=== PATIENT | male | born 1985 | race Caucasian/White ===

== ENCOUNTER 2020-02-11 10:01 | Emergency (ER) | payer SELFPAY ==
[2020-02-11 10:07] VITALS: BP 138/95; PULSE 86; RESP 16; TEMP 36.9; O2SAT 99; BMI 29.5
[2020-02-11 10:16] VITALS: PULSE 84; RESP 16; O2SAT 100
[2020-02-11 10:32] LABS: Basophils # 0.1 10^3/uL (0.0-0.1); Basophils % 0.9 %; Eosinophils # 0.2 10^3/uL (0.0-0.8); Hematocrit 51.3 % (42.0-52.0); Hemoglobin 17.7 g/dL (11.7-16.6); Lymphocytes # 2.2 10^3/uL (0.8-4.8); Lymphocytes % 19.9 %; Mean Corpuscular HGB Conc 34.5 g/dL (30.0-36.0); Mean Corpuscular Hemoglobin 31.5 pg (28.0-34.0); Mean Corpuscular Volume 91.3 fL (80-94); Mean Platelet Volume 9.4 fL (7.4-10.4); Monocytes # 0.6 10^3/uL (0.2-0.9); Monocytes % 5.6 %; Neutrophils # 7.91 10^3/uL (1.8-7.7); Neutrophils % 71.2 %; Nucleated Red Blood Cells % 0 %; Platelet Count 316 10^3/cmm (130-400); Red Blood Count 5.62 10^6/uL (4.1-5.3); Red Cell Distribution Width 11.5 % (12.1-15.1); White Blood Count 11.1 10^3/uL (4.0-10.0)
[2020-02-11 10:35] LABS: Add Urine Microscopic? NO
[2020-02-11 10:48] LABS: Bilirubin Urine 1+ (NEGATIVE); Blood Urine Neg (Negative); Glucose Urine UA Norm (Normal); Ketones Urine 1+ (Negative); Leukocyte Esterase Urine Negative (Negative); Nitrate Urine Negative (Negative); Protein Urine Neg (Negative); Urine Appearance Clear (CLEAR); Urine Color Yellow (Yellow); Urobilinogen Urine Norm (Negative)
[2020-02-11 10:55] LABS: Alanine Aminotransferase 16 U/L (0-41); Alkaline Phosphatase 99 IU/L (40-130); Anion Gap 14.9 (5-19); Aspartate Amino Transferase 15 U/L (0-40); Blood Urea Nitrogen 10 mg/dL (6-20); Calcium 9.5 mg/dL (8.5-10.5); Carbon Dioxide 25 mmol/L (22-29); Chloride 102 mmol/L (98-107); Glomerular Filtration Rate 97.2 mL/min (90-130); Glucose 106 mg/dL (65-115); Osmolality Calculated 282 mOsm/kg (285-295); Potassium 3.9 mmol/L (3.5-5.1); Sodium 138 mmol/L (136-145); Total Bilirubin 0.6 mg/dL (0.15-1.2); Valproic Acid Level 2.8 ug/mL (50-100)
--- NOTE | 2020-02-11 10:55 | W.ED.PSYCH ---
HPI - Psych General: Chief Complaint: Psychiatric Symptoms Stated Complaint: SI Time Seen by Provider: 02/11/20 10:06 History of Present Illness: HPI Narrative: 34-year-old male presents with suicidal ideation. He got upset because his mother was angry with him for leaving trash in her vehicle anybody does not have a vehicle of his own. He posted on social media that he was going to kill himself with a handgun. He denies suicidal ideation at this time. Due to the social media post alcohol discharge department brought him in for evaluation. Stairstep he did show me the social media post. Patient does admit that it was his post and that he posted that he was going to kill himself. MD complaint: suicidal ideation Onset (ago): day(s) Duration: intermittent Review of Systems Const: Denies: fever(s), chills, body aches, change in appetite, fatigue or malaise ENMT: Denies: throat pain, ear or mastoid pain, nasal discharge or nasal congestion Card: Denies: chest pain, edema, dyspnea on exertion or orthopnea Resp: Denies: dyspnea, productive cough or non-productive cough GI: Denies: abdominal pain, nausea, vomiting, hematemesis, coffee ground emesis, diarrhea, constipation, bloating, hematochezia or melena : Denies: flank pain, dysuria, urinary frequency or urinary urgency Skin/Breast: Denies: rash or pruritus [facility] ED PFSH: Medical History (Updated 02/11/20 @ 16:50 by Michele Tsai DO) Hypertension Physical Exam Const: COMMON NORMALS: no acute distress GENERAL APPEARANCE: cooperative and comfortable ORIENTATION/CONSCIOUSNESS: Yes awake, Yes oriented to person, Yes oriented to place and Yes oriented to time HENMT: COMMON NORMALS: normocephalic and atraumatic HEAD & SCALP: normocephalic and atraumatic Eye: COMMON NORMALS: Equal, round and reactive pupils present, EOMs intact bilaterally, conjunctivae normal and no scleral icterus CONJUNCTIVA: Yes conjunctivae normal PUPIL: Yes Equal, round and reactive pupils present Neck/C-Spine: COMMON NORMALS: full ROM, no lymphadenopathy, supple and no JVD Lymph: LYMPHATIC: no lymphadenopathy noted and no lymphedema noted Resp: COMMON NORMALS: normal respiratory effort, No retractions, No use of accessory muscles and clear to auscultation bilaterally AUSCULTATION: clear to auscultation bilaterally Cardio: COMMON NORMALS: no JVD, regular rate, regular rhythm and No murmurs present (Cardio) RATE: regular rate RHYTHM: regular rhythm GI: COMMON NORMALS: Soft to palpation and No hepatosplenomegaly present AUSCULTATION: Yes normoactive bowel sounds PALPATION: Yes Soft to palpation, No Tenderness to palpation present (GI), No Guarding due to palpation present (GI) and Yes No hepatosplenomegaly present Extremity: COMMON NORMALS: normal to inspection, capillary refill normal, no clubbing, cyanosis or edema, no calf tenderness and no pedal edema Neuro: SENSORIUM/ORIENTATION: Yes oriented to person, Yes oriented to place and Yes oriented to time Skin: COMMON NORMALS: no rashes or lesions noted GENERAL SKIN EXAM: no rashes or lesions noted MDM - Psych MDM Narrative: Medical decision making narrative: Dust with Dr. garcia. Patient readily admits he made the social media post however and talk to him his biggest concern is about the days he will lose from work if he is admitted Dr. garcia came down and seen the patient he does not feel the patient at this time represents an immediate harm to himself or anyone else when I talked to the patient he denied any suicidal ideation although he admitted to the social media post Dr. garcia felt the patient could be safely be discharged home please see his note will discharge patient home encouraged him to get follow-up at [facility] I did make a referral through case case management. Lab Data: Labs: Lab Results 02/11/20 02/11/20 02/11/20 Range/Units 10:25 10:25 10:26 WBC 11.1 H (4.0-10.0) 10^3/ uL RBC 5.62 H (4.1-5.3) 10^6/u L Hgb 17.7 H (11.7-16.6) g/dL Hct 51.3 (42.0-52.0) % MCV 91.3 (80-94) fL MCH 31.5 (28.0-34.0) pg MCHC 34.5 (30.0-36.0) g/dL RDW 11.5 L (12.1-15.1) % Plt Count 316 (130-400) 10^3/c mm MPV 9.4 (7.4-10.4) fL Neut % (Auto) 71.2 % Lymph % (Auto) 19.9 % [place] % (Auto) 5.6 % Eos % (Auto) 2.0 % Baso % (Auto) 0.9 % Neut # (Auto) 7.91 H (1.8-7.7) 10^3/u L Lymph # (Auto) 2.2 (0.8-4.8) 10^3/u L [place] # (Auto) 0.6 (0.2-0.9) 10^3/u L Eos # (Auto) 0.2 (0.0-0.8) 10^3/u L Baso # (Auto) 0.1 (0.0-0.1) 10^3/u L Nucleated RBC % (a uto) 0 % Nucleated RBCs # 0.0 /100WBC Sodium (136-145) mmol/L Potassium (3.5-5.1) mmol/L Chloride (98-107) mmol/L Carbon Dioxide (22-29) mmol/L Anion Gap (5-19) BUN (6-20) mg/dL Creatinine (0.7-1.2) mg/dL GFR Calculation (90-130) mL/min Glucose (65-115) mg/dL Calculated Osmolal ity (285-295) mOsm/k g Calcium (8.5-10.5) mg/dL Total Bilirubin (0.15-1.2) mg/dL AST (0-40) U/L ALT (0-41) U/L Alkaline Phosphata se (40-130) IU/L Total Protein (6.6-8.7) g/dL Albumin (3.5-5.2) g/dL Globulin (1.3-4.6) g/dL Urine Color Yellow (Yellow) Urine Appearance Clear (CLEAR) Urine pH 5.0 (5-7) Ur Specific Gravit y 1.020 (1.005-1.030) Urine Protein Neg (Negative) Urine Glucose (UA) Norm (Normal) Urine Ketones 1+ H (Negative) Urine Blood Neg (Negative) Urine Nitrate Negative (Negative) Urine Bilirubin 1+ H (NEGATIVE) Urine Urobilinogen Norm (Negative) mg/dL Ur Leukocyte Ghada ase Negative (Negative) Salicylates (3-10) mg/dL Urine Opiates Scre en Negative (Negative) ng/mL Acetaminophen (10-30) ug/mL Ur Barbiturates Sc reen Negative (Negative) ng/mL Valproic Acid (50-100) ug/mL Ur Phencyclidine S crn Negative (Negative) ng/mL Ur Amphetamines Sc reen Negative (Negative) ng/mL U Benzodiazepines Scrn Negative (Negative) ng/mL Urine Cocaine Scre en Negative (Negative) ng/mL U Marijuana (THC) Screen Positive H (Negative) ng/mL Ethyl Alcohol (0-10) mg/dL 02/11/20 02/11/20 Range/Units 10:26 10:26 WBC (4.0-10.0) 10^3/ uL RBC (4.1-5.3) 10^6/u L Hgb (11.7-16.6) g/dL Hct (42.0-52.0) % MCV (80-94) fL MCH (28.0-34.0) pg MCHC (30.0-36.0) g/dL RDW (12.1-15.1) % Plt Count (130-400) 10^3/c mm MPV (7.4-10.4) fL Neut % (Auto) % Lymph % (Auto) % [place] % (Auto) % Eos % (Auto) % Baso % (Auto) % Neut # (Auto) (1.8-7.7) 10^3/u L Lymph # (Auto) (0.8-4.8) 10^3/u L [place] # (Auto) (0.2-0.9) 10^3/u L Eos # (Auto) (0.0-0.8) 10^3/u L Baso # (Auto) (0.0-0.1) 10^3/u L Nucleated RBC % (a uto) % Nucleated RBCs # /100WBC Sodium 138 (136-145) mmol/L Potassium 3.9 (3.5-5.1) mmol/L Chloride 102 (98-107) mmol/L Carbon Dioxide 25 (22-29) mmol/L Anion Gap 14.9 (5-19) BUN 10 (6-20) mg/dL Creatinine 0.9 (0.7-1.2) mg/dL GFR Calculation 97.2 (90-130) mL/min Glucose 106 (65-115) mg/dL Calculated Osmolal ity 282 L (285-295) mOsm/k g Calcium 9.5 (8.5-10.5) mg/dL Total Bilirubin 0.6 (0.15-1.2) mg/dL AST 15 (0-40) U/L ALT 16 (0-41) U/L Alkaline Phosphata se 99 (40-130) IU/L Total Protein 8.0 (6.6-8.7) g/dL Albumin 5.0 (3.5-5.2) g/dL Globulin 3.0 (1.3-4.6) g/dL Urine Color (Yellow) Urine Appearance (CLEAR) Urine pH (5-7) Ur Specific Gravit y (1.005-1.030) Urine Protein (Negative) Urine Glucose (UA) (Normal) Urine Ketones (Negative) Urine Blood (Negative) Urine Nitrate (Negative) Urine Bilirubin (NEGATIVE) Urine Urobilinogen (Negative) mg/dL Ur Leukocyte Ghada ase (Negative) Salicylates < 0.3 L (3-10) mg/dL Urine Opiates Scre en (Negative) ng/mL Acetaminophen < 5.0 L (10-30) ug/mL Ur Barbiturates Sc reen (Negative) ng/mL Valproic Acid 2.8 L (50-100) ug/mL Ur Phencyclidine S crn (Negative) ng/mL Ur Amphetamines Sc reen (Negative) ng/mL U Benzodiazepines Scrn (Negative) ng/mL Urine Cocaine Scre en (Negative) ng/mL U Marijuana (THC) Screen (Negative) ng/mL Ethyl Alcohol < 10 (0-10) mg/dL Discharge Plan Discharge Patient Disposition: Home Clinical Impression: Depression Condition: Stable Prescriptions: No Action No Known Home Medications RF: 0 Referrals: [facility], [Staff Physician] - Discharge Diet: Usual diet Discharge Activity: Resume usual activity Activity Restrictions/Additional Instructions: Follow-up appointment with [facility] Discharge Date/Time: 02/11/20 13:00 Coding Level of Care Code ED Aboriginal Education Worker Coordinator for Familia Rivera
[2020-02-11 10:56] LABS: Amphetamines Screen Urine Negative (Negative); Barbiturates Screen Urine Negative (Negative); Benzodiazepines Screen Urine Negative (Negative); Cocaine Screen Urine Negative (Negative); Opiate Screen Urine Negative (Negative); PCP Screen Urine Negative (Negative); THC Screen Urine Positive (Negative)
[2020-02-11 11:12] LABS: Acetaminophen < 5.0 ug/mL (10-30); Alcohol Level < 10 mg/dL (0-10)
[2020-02-11 13:20] LABS: Salicylate < 0.3 mg/dL (3-10)
== END 2020-02-11 13:00 | disposition home or self-care (01) ==
PROVIDERS: Emergency Provider Family Medicine; PCP Nurse Practitioner Family
DX: F32.9 Major depressive disorder, single episode, unspecified (principal); I10 Essential (primary) hypertension
CPT/HCPCS: 12345; 36415; 80053; 80164; 80306; 80307; 81003; 85025; 99284

== ENCOUNTER 2020-02-25 22:41 | Inpatient (IN) | payer SELFPAY ==
[2020-02-25 22:49] VITALS: BP 139/93; PULSE 75; RESP 18; TEMP 36.4; O2SAT 99; BMI 29.5
--- NOTE | 2020-02-25 23:19 | W.ED.PSYCH ---
HPI - Psych General: Chief Complaint: Psychiatric Symptoms Stated Complaint: ho smith Time Seen by Provider: 02/25/20 22:42 Source: patient Mode of arrival: ambulatory Limitations: no limitations History of Present Illness: HPI Narrative: 34-year-old male who states to me that he is extremely depressed and suicidal and states he feels like the world is coming in on him. Patient here is been very quiet has a very flat affect. History is very difficult to get to him as he is not very cooperative will not give me any details. Patient states he supposed to be on meds but is not taking any at this time. Associated symptoms: Reports suicidal ideation Review of Systems Const: Denies: fever(s), chills, body aches or change in appetite Eyes: Denies: blurry vision or eye discomfort ENMT: Denies: throat pain or dental pain Card: Denies: chest pain Resp: Denies: dyspnea GI: Denies: abdominal pain, nausea, vomiting or diarrhea : Denies: dysuria Musc: Denies: neck pain or back pain Skin/Breast: Denies: rash Neuro: Denies: headache(s) Psych: Reports: suicidal ideation Federico/Lymph: Denies: easy bruising All/Imm: Denies: urticaria PFSH ED PFSH: Medical History (Updated 02/19/20 @ 00:00 by ) Hypertension Physical Exam Const: COMMON NORMALS: no acute distress, patient oriented x3 and healthy appearing HENMT: COMMON NORMALS: normocephalic and atraumatic HEAD & SCALP: normocephalic and atraumatic Eye: COMMON NORMALS: Equal, round and reactive pupils present and EOMs intact bilaterally PUPIL: Yes Equal, round and reactive pupils present Neck/C-Spine: COMMON NORMALS: full ROM and supple Chest: COMMONS NORMALS: normal inspection of the chest and normal palpation of entire chest wall Resp: COMMON NORMALS: normal respiratory effort, No retractions, No use of accessory muscles and clear to auscultation bilaterally AUSCULTATION: clear to auscultation bilaterally Cardio: COMMON NORMALS: regular rate, regular rhythm and No murmurs present (Cardio) RATE: regular rate RHYTHM: regular rhythm GI: COMMON NORMALS: Normal to inspection, nondistended, normoactive bowel sounds present, Soft to palpation, non-tender and no masses PALPATION: Yes Soft to palpation Extremity: COMMON NORMALS: normal to inspection and full ROM Neuro: COMMON NORMALS: patient oriented x3, moves all extremities and no focal motor deficits Psych: APPEARANCE: Yes disheveled ATTITUDE: Yes Withdrawn affect present, Yes evasive and Yes Guarded attititude/behavior present SPEECH: Yes minimal MOOD & AFFECT: Yes depressed mood THOUGHT CONTENT: Yes Suicidality present Skin: COMMON NORMALS: no rashes or lesions noted and no wounds GENERAL SKIN EXAM: no rashes or lesions noted MDM - Psych MDM Narrative: Medical decision making narrative: Patient presents here with suicidal ideation. Patient placed under 96 and is medically cleared. I spoke to Dr. Saldaña and will admit to the neuro psych unit. Lab Data: Labs: Lab Results 02/25/20 02/25/20 02/25/20 Range/Units 23:20 23:45 23:45 WBC 9.4 (4.0-10.0) 10^3/ uL RBC 5.26 (4.1-5.3) 10^6/u L Hgb 16.0 (11.7-16.6) g/dL Hct 47.4 (42.0-52.0) % MCV 90.1 (80-94) fL MCH 30.4 (28.0-34.0) pg MCHC 33.8 (30.0-36.0) g/dL RDW 11.9 L (12.1-15.1) % Plt Count 337 (130-400) 10^3/c mm MPV 9.4 (7.4-10.4) fL Neut % (Auto) 47.8 % Lymph % (Auto) 41.4 % [place] % (Auto) 6.0 % Eos % (Auto) 3.5 % Baso % (Auto) 0.9 % Neut # (Auto) 4.47 (1.8-7.7) 10^3/u L Lymph # (Auto) 3.9 (0.8-4.8) 10^3/u L [place] # (Auto) 0.6 (0.2-0.9) 10^3/u L Eos # (Auto) 0.3 (0.0-0.8) 10^3/u L Baso # (Auto) 0.1 (0.0-0.1) 10^3/u L Nucleated RBC % (a uto) 0 % Nucleated RBCs # 0.0 /100WBC Sodium 140 (136-145) mmol/L Potassium 3.7 (3.5-5.1) mmol/L Chloride 105 (98-107) mmol/L Carbon Dioxide 23 (22-29) mmol/L Anion Gap 15.7 (5-19) BUN 10 (6-20) mg/dL Creatinine 0.7 (0.7-1.2) mg/dL GFR Calculation 129.9 (90-130) mL/min Glucose 102 (65-115) mg/dL Calculated Osmolal ity 286 (285-295) mOsm/k g Calcium 8.7 (8.5-10.5) mg/dL Total Bilirubin 0.4 (0.15-1.2) mg/dL AST 16 (0-40) U/L ALT 18 (0-41) U/L Alkaline Phosphata se 82 (40-130) IU/L Total Protein 8.1 (6.6-8.7) g/dL Albumin 4.7 (3.5-5.2) g/dL Globulin 3.4 (1.3-4.6) g/dL Salicylates < 0.3 L (3-10) mg/dL Urine Opiates Scre en Negative (Negative) ng/mL Acetaminophen < 5.0 L (10-30) ug/mL Ur Barbiturates Sc reen Negative (Negative) ng/mL Ur Phencyclidine S crn Negative (Negative) ng/mL Ur Amphetamines Sc reen Negative (Negative) ng/mL U Benzodiazepines Scrn Negative (Negative) ng/mL Urine Cocaine Scre en Negative (Negative) ng/mL U Marijuana (THC) Screen Negative (Negative) ng/mL Ethyl Alcohol 136 H (0-10) mg/dL Discharge Plan Discharge Prescriptions: No Action No Known Home Medications RF: 0 Coding Level of Care Code ED Inside Barrel Lathe Operator for Chg Fwd Exam Comprehensive
[2020-02-25] MEDS: LORazepam 2 mg Tablet PO (23:30)
[2020-02-25 23:52] LABS: Amphetamines Screen Urine Negative (Negative); Barbiturates Screen Urine Negative (Negative); Benzodiazepines Screen Urine Negative (Negative); Cocaine Screen Urine Negative (Negative); Opiate Screen Urine Negative (Negative); PCP Screen Urine Negative (Negative); THC Screen Urine Negative (Negative)
[2020-02-26 00:03] LABS: Basophils # 0.1 10^3/uL (0.0-0.1); Basophils % 0.9 %; Eosinophils # 0.3 10^3/uL (0.0-0.8); Eosinophils % 3.5 %; Hematocrit 47.4 % (42.0-52.0); Lymphocytes # 3.9 10^3/uL (0.8-4.8); Lymphocytes % 41.4 %; Mean Corpuscular HGB Conc 33.8 g/dL (30.0-36.0); Mean Corpuscular Hemoglobin 30.4 pg (28.0-34.0); Mean Corpuscular Volume 90.1 fL (80-94); Mean Platelet Volume 9.4 fL (7.4-10.4); Monocytes # 0.6 10^3/uL (0.2-0.9); Neutrophils # 4.47 10^3/uL (1.8-7.7); Neutrophils % 47.8 %; Nucleated Red Blood Cells % 0 %; Platelet Count 337 10^3/cmm (130-400); Red Blood Count 5.26 10^6/uL (4.1-5.3); Red Cell Distribution Width 11.9 % (12.1-15.1); White Blood Count 9.4 10^3/uL (4.0-10.0)
[2020-02-26 00:14] LABS: Alanine Aminotransferase 18 U/L (0-41); Albumin Level 4.7 g/dL (3.5-5.2); Alcohol Level 136 mg/dL (0-10); Alkaline Phosphatase 82 IU/L (40-130); Anion Gap 15.7 (5-19); Aspartate Amino Transferase 16 U/L (0-40); Blood Urea Nitrogen 10 mg/dL (6-20); Calcium 8.7 mg/dL (8.5-10.5); Carbon Dioxide 23 mmol/L (22-29); Chloride 105 mmol/L (98-107); Globulin 3.4 g/dL (1.3-4.6); Glomerular Filtration Rate 129.9 mL/min (90-130); Glucose 102 mg/dL (65-115); Osmolality Calculated 286 mOsm/kg (285-295); Potassium 3.7 mmol/L (3.5-5.1); Sodium 140 mmol/L (136-145); Total Bilirubin 0.4 mg/dL (0.15-1.2); Total Protein 8.1 g/dL (6.6-8.7)
[2020-02-26 00:15] LABS: Acetaminophen < 5.0 ug/mL (10-30); Salicylate < 0.3 mg/dL (3-10)
[2020-02-26 01:20] VITALS: BP 146/87; PULSE 87; RESP 14; O2SAT 99
[2020-02-26 01:37] VITALS: BP 149/87; PULSE 76; RESP 15; TEMP 36.6; O2SAT 98
[2020-02-26 03:14] VITALS: BP 118/68; PULSE 94; RESP 15; TEMP 36.8; O2SAT 98
[2020-02-26 06:00] VITALS: BP 118/68; PULSE 94; RESP 15; TEMP 36.8; O2SAT 98
[2020-02-26] MEDS: thiamine 100 mg Tablet PO (08:43)
[2020-02-26] MEDS: folic acid 1 mg Tablet PO (08:43)
[2020-02-26] MEDS: multivitamin therapeutic Tablet 1 TAB PO (08:43)
[2020-02-26 14:00] VITALS: BP 115/70; PULSE 97; RESP 20; TEMP 37; O2SAT 96
--- NOTE | 2020-02-26 14:43 | P.HP_ITS ---
Providers/Chief Complaint Admitting Physician: Aristeo Saldaña MD Chief Complaint: si, mhe HPI NPU History of Present Illness Servando Merino is a 34 year old male who presented to the emergency room reporting that he was extremely depressed and suicidal, feels like the world is coming in on him. He reportedly had a flat affect, and he was a poor historian reportedly. He reported he was supposed to be on medication but was not taking any. He endorsed suicidal ideation. He was noted to have a blood alcohol level of 136. He was admitted to the neuropsychiatric unit for definitive treatment of those issues. He presented to the neuropsychiatric unit as a fairly poor historian, very guarded, and struggled to even turn and face this feature writer. He reports that he had been off his medication for an unknown period of time. Servando had reportedly gone to the emergency room earlier in the month with an episode where his mother was angry with him for leaving trash in her vehicle after which he posted on social media that he was going to kill himself, though he denied suicidal ideation when he was in the emergency room. He was brought in for evaluation where he acknowledged that he was feeling angry at the time and did post that but denied any issues like that. He denied that he would ever follow through on that. The case was discussed with Dr. Owens and he was evaluated and encouraged to follow-up with [facility] where he had a case finisher. There was a call after that by Servando? mother, very angry that he was not admitted but he had no problems or concerns reportedly after that. He is unable to articulate to me how often he drinks, how long he has been off the medication, when was the last time he was followed with regularity. His mother has had multiple calls with concerns about his drinking and things of that nature. He really had no conversation for that either. We reviewed his history given his limited ability to provide a clear history. His last inpatient hospitalization was in June of 2015 and we reviewed that document, which he reports was a fairly accurate depiction of his history. We also reviewed an excerpt of that note which is included below. We also reviewed one of his earliest hospitalizations which was at [facility] which was in March of 2012, and we discussed the fact that at that time he had just been placed on a 96-hour hold after he had been drinking and got pulled over by the [facility] police. He had been picked up for DWI and he was really freaking out because he was afraid that he was going to lose his job. He had some self-injurious behavior at the time that he was later embarrassed. He presented with an elevated blood alcohol level and was denying any signi ficant alcohol problem at that time when he was working at [employer]. He identifies that he has some intellectual limitations, as he was in special education classes at school. There has been a discussion that he has held diagnoses of major depressive disorder, cannabis use disorder, and there have been questions of whether or not he meets the criteria for autism spectrum disorder which they refer to as Asperger?s. Currently he endorses a desire to initiate medication. We discussed briefly, the medication that he had been on. He was not sure and wanted me to check. We agreed to look into the possibility of starting Prozac 20 mg po qam and Buspar 15 mg po bid after discussing the risks, benefits, and alternatives. He agreed to consider starting these in the morning. There is depression and anxiety. Per his last [facility] eval: History of Present Illness Date of Service: Jun 18, 2015 Chief Complaint: Suicidal ideations HPI: The patient was admitted from the emergency room due to suicidal ideations. According to reports, he was transported to the emergency room by police after a fight with his mother. He looks very depressed, withdrawn with a flat affect. He states he stopped taking his medications for at least a month and a half because they made him feel sluggish. States he is not able to work on his current medications. He is not hearing voices and seeing things. He has been treated on the unit in the past and follows up at [facility] for outpatient care and carries previous diagnosis of major depressive disorder, cannabis dependence and borderline intellectual functioning. Review of Psychiatric Systems: Negative, except as above. Allergies: Coded Allergies: NO KNOWN DRUG ALLERGIES (Verified Allergy, Unknown, 11/21/13) Active Meds: Current Hospital Medications: Medications (Trade) Dose Ordered Sig/Gabriel Route PRN Reason Start Time Stop Time Status Last Admin Dose Admin Lorazepam (Ativan Tab) 0.5 mg Q4H PRN PO FOR MILD ANXIETY 06/17/15 11:15 Lorazepam (Ativan Tab) 1 mg Q4H PRN PO FOR MODERATE ANXIETY 06/17/15 11:15 Lorazepam (Ativan Tab) 2 mg Q4H PRN PO FOR SEVERE ANXIETY 06/17/15 11:15 Lorazepam (Ativan Inj) 2 mg Q4H PRN IM For Severe Aggression 06/17/15 11:15 Haloperidol Lactate (Haldol Inj) 5 mg Q4H PRN IM Severe Aggression 06/17/15 11:15 Diphenhydramine HCl (Benadryl Inj) 50 mg ONCE PRN IV Severe Extrapyramidal Symptoms 06/17/15 11:15 Benztropine Mesylate (Cogentin Tab) 1 mg BID PRN PO Mild Extrapyramidal symptoms 06/17/15 11:15 Benztropine Mesylate (Cogentin Inj) 1 mg ONCE PRN IM Severe Extrapyramidal Symptom 06/17/15 11:15 Acetaminophen (Tylenol Tab) 650 mg Q4H PRN PO FOR MILD PAIN 06/17/15 11:15 Trazodone HCl (Trazodone) 50 mg HS PRN PO FOR SLEEP 06/17/15 11:15 Nicotine (Nicoderm Patch) 21 mg DAILY PRN TD FOR WITHDRAWAL 06/17/15 11:15 Nicotine Polacrilex (Nicotine Gum) 2 mg Q2H PRN PO Withdrawal 06/17/15 11:15 Haloperidol (Haldol Tab) 5 mg Q4H PRN PO For agitation 06/17/15 11:15 Lorazepam (Ativan Tab) 2 mg Q4H PRN PO FOR AGITATION 06/17/15 11:15 Aripiprazole (Abilify Tab) 5 mg HS PO 06/18/15 22:00 Citalopram Hydrobromide (Celexa) 20 mg HS PO 06/18/15 22:00 Lisinopril (Prinivil) 20 mg DAILY PO 06/18/15 11:00 06/18/15 13:03 Home Meds: He was previously on Abilify, Celexa, trazodone and Topamax as well as lisinopril for blood pressure management. Past Medical History Past Medical/Social History: PAST PSYCHIATRIC HISTORY: As mentioned above. FAMILY PSYCHIATRIC HISTORY: father :alcoholic. There is no family history of suicide. SUBSTANCE USE HISTORY: History of marijuana use. PAST MEDICAL HISTORY: None reported. SOCIAL HISTORY: He was born in [place], [place], but raised in [place], [place]. His parents when he was very young and he moved around a lot as a child. He is single and has no children. He is a high school graduate and he currently works. He was in special education classes in school. He has never been in the . Physical Exam Vital Signs: Vital Signs: Date Time Temp Pulse Resp B/P Pulse Ox O2 Delivery O2 Flow Rate FiO2 06/18/15 06:22 98.4 90 18 131/88 96 06/17/15 13:31 Room Air Physical Exam: HEENT: Normal to inspection. NECK: Supple. CARDIOVASCULAR: S1 and S2 normal. CHEST: Clear. ABDOMEN: Soft. Nontender. NEUROLOGIC: No obvious deficits. EXTREMITIES: Normal to inspection. Review of systems: A fourteen-point Review of Systems is done, but is negative except as above. MENTAL STATUS EXAMINATION: In addition to what is mentioned above, The patient is alert and oriented. Speech is normal in rate, volume and tone. Patient describes mood as depressed. Affect is depressed. Insight and judgment are fair/poor. On cognitive examination, the patient appears cognitively limited: No, as evidenced by use of language and language comprehension. Data Result Diagram: 06/17/154906/17/1549 document embedded image Impression AXIS I: Major depressive disorder, severe without psychotic features; cannabis use disorder. AXIS II: Borderline intellectual functioning AXIS III: None AXIS IV: Work related problems. AXIS V: Global Assessment of Function: 25. Meds NPU Home Medications Medication Instructions Recorded Confirmed Last Taken Type No Known Home Medications 02/11/20 02/11/20 Unknown History Allergies Allergy/AdvReac Type Severity Reaction Status Date / Time No Known Allergies Allergy Verified 02/11/20 10:16 [facility] NPU PFSH: Medical History (Updated 03/01/20 @ 08:06 by Aristeo Saldaña MD) Hypertension Mental Status Exam MSE Comments: This is an obese, white male, with adequate dress, grooming, and limited eye contact. No abnormal movements except for mild to moderate psychomotor retardation. Semi-cooperative with exam in mild distress. Speech was decreased rate and volume and limited. Mood described as depressed and anxious; affect congruent. Thought process, organized. Thought content: patient did endorse suicidal ideation but denied homicidal ideation. There were no delusions reported or noted, patient denied any auditory or visual hallucinations. Attention, concentration, and memory appear intact but were not formally tested. He is alert and oriented times three. Insight and judgment are limited. Impulse control is limited, and intellectual ability is impaired. Vitals/I&O/Wt Last Vital Signs Temp 99.2 F 02/26/20 20:51 Pulse 80 02/26/20 20:51 Resp 18 02/26/20 20:51 BP 102/63 02/26/20 20:51 Pulse Ox 98 02/26/20 20:51 Weight last 48 hrs Weight 90.718 kg Data NPU : 02/25/20 23:45 02/25/20 23:45 A&P Assessment and plan (1) Depression: Status: Acute (2) Anxiety: Status: Acute (3) Alcohol use disorder: Status: Acute (4) Intellectual disability: Status: Acute (5) Autism: Status: Acute Additional A&P Information This is a 34 year old, white male, with alcohol use disorder, intellectual disability, depression and anxiety, and a question of autistic spectrum disorder, who presents reporting a desire to initiate medication but reports that there are some that have not been that good and he wanted to check first before he started it. Continue current medication except will start Buspar 15 mg bid and Prozac 20 mg po qam in the morning. Encourage individual, group, and milieu therapy. Continue q-15 minute checks for safety. Recommend sober living treatment at the highest level of care to which the patient is willing to commit. Involuntary Hold Information 96 Hour Hold: 96 Hour Involuntary Admission: Yes 96 Hour Hold Ending Date: 03/02/20 96 Hour Hold Ending Time: 23:30 Attestations NPU Medical Necessity Statement*: Inpatient hospitalization is medically necessary and the clinically appropriate intervention at this time. We will monitor medications and make changes as indicated. Patient will be in the hospital for over two midnights. Likely length of stay four to six days. Coding Level of Care Code Acute Manager Of Internal Audit for Johng Fwd Diagnoses Depression F32.9 Anxiety F41.9 Alcohol use disorder Intellectual disability F79 Autism F84.0
[2020-02-26] MEDS: fluoxetine 20 mg Capsule PO (18:22)
[2020-02-26 20:51] VITALS: BP 102/63; PULSE 80; RESP 18; TEMP 37.3; O2SAT 98
[2020-02-27 06:00] VITALS: BP 109/70; PULSE 83; RESP 18; TEMP 36.9; O2SAT 98
[2020-02-27] MEDS: fluoxetine 20 mg Capsule PO (08:22)
[2020-02-27] MEDS: folic acid 1 mg Tablet PO (08:22)
[2020-02-27] MEDS: multivitamin therapeutic Tablet 1 TAB PO (08:22)
[2020-02-27] MEDS: thiamine 100 mg Tablet PO (08:22)
--- NOTE | 2020-02-27 13:49 | PM.NPN ---
Subjective NPU Subjective: Interval history: Servando presents today still fairly tightlipped and not very communicative, but very much isolative on the unit and staying in his room. He agreed that starting the Prozac and Buspar would be fine. We once again reviewed the risks, benefits, and alternatives to the medications, and he understood and agreed to proceed as is documented in this note. He reports that he wants to get better and wants to leave soon as he can. We reviewed with him that he is on a 96-hour hold and we would monitor him for improvement and discharge when it is safe to do so and that we had a sign that the medication was being effective, which he understood. Mental Status Exam MSE Comments: This is an obese, white male, with adequate dress, grooming, and limited eye contact. No abnormal movements except for mild to moderate psychomotor retardation. Semi-cooperative with exam in mild distress. Speech was decreased rate and volume and limited. Mood described as depressed and anxious; affect congruent. Thought process, organized. Thought content: patient did endorse suicidal ideation but denied homicidal ideation. There were no delusions reported or noted, patient denied any auditory or visual hallucinations. Attention, concentration, and memory appear intact but were not formally tested. He is alert and oriented times three. Insight and judgment are limited. Impulse control is limited, and intellectual ability is impaired. Vitals/I&O/Wt Last Vital Signs Temp 98.0 F 02/27/20 22:00 Pulse 101 H 02/27/20 22:00 Resp 18 02/27/20 22:00 BP 147/99 02/27/20 22:00 Pulse Ox 95 02/27/20 22:00 Data NPU : 02/25/20 23:45 02/25/20 23:45 A&P Additional A&P Information (1) Depression: (2) Anxiety: (3) Alcohol use disorder: (4) Intellectual disability: (5) Autism: Additional A&P Information This is a 34 year old, white male, with alcohol use disorder, intellectual disability, depression and anxiety, and a question of autistic spectrum disorder, who presents reporting a desire to initiate medication but reports that there are some that have not been that good and he wanted to check first before he started it. Continue current medication. Encourage individual, group, and milieu therapy. Continue q-15 minute checks for safety. Recommend sober living treatment at the highest level of care to which the patient is willing to commit. Involuntary Hold Information 96 Hour Hold: 96 Hour Involuntary Admission: Yes 96 Hour Hold Ending Date: 03/02/20 96 Hour Hold Ending Time: 23:30 Attestations NPU Medical Necessity Statement*: Inpatient hospitalization is medically necessary and the clinically appropriate intervention at this time. We will monitor medications and make changes as indicated. Likely length of stay 3-5 days. Coding Level of Care Code Acute Engine Lathe Set Up Operator for Familia Rivera
[2020-02-27 14:00] VITALS: BP 107/67; PULSE 83; RESP 18; TEMP 37.1; O2SAT 95
[2020-02-27 22:00] VITALS: BP 147/99; PULSE 101; RESP 18; TEMP 36.7; O2SAT 95
[2020-02-27] MEDS: trazodone 50 mg Tablet PO (22:13)
[2020-02-28 06:00] VITALS: BP 109/72; PULSE 83; RESP 16; TEMP 36.5; O2SAT 92
[2020-02-28] MEDS: thiamine 100 mg Tablet PO (09:29)
[2020-02-28] MEDS: fluoxetine 20 mg Capsule PO (09:29)
[2020-02-28] MEDS: multivitamin therapeutic Tablet 1 TAB PO (09:29)
[2020-02-28] MEDS: folic acid 1 mg Tablet PO (09:29)
--- NOTE | 2020-02-28 11:42 | P.PN_ITS ---
Subjective NPU Subjective: Interval history: Servando presents today slightly more engaged, spending less time in his room and in bed, and more interactive. He is still fairly nonverbal, or at least there is not a lot of spontaneous conversation, but he is answering questions and seeming a little less apprehensive about talking to this director underwriter sales. His roommate was likely going to be discharged, and so he inquired about the timeframe for his discharge. We once again reviewed that his 96-hour hold was up on the , but that we would discharge him as soon as we had a sense that the medication was moving forward and we had a good plan for treatment. He reports that he is eating okay and sleeping better. Mental Status Exam MSE Comments: This is an obese, white male, with adequate dress, grooming, and approved eye contact. No abnormal movements except for mild psychomotor retardation. More cooperative with exam in no acute distress. Speech was more normal rate and volume and more spontaneous speech. Mood described as a little better ; affect congruent. Thought process, organized. Thought content: patient denies suicidal or homicidal ideation. There were no delusions reported or noted, patient denied any auditory or visual hallucinations. Attention, concentration, and memory appear intact but were not formally tested. He is alert and oriented times three. Insight and judgment are limited, but improving. Impulse control is limited, and intellectual ability is impaired. Vitals/I&O/Wt Last Vital Signs Temp 97.7 F 02/28/20 06:00 Pulse 83 02/28/20 06:00 Resp 16 02/28/20 06:00 BP 109/72 02/28/20 06:00 Pulse Ox 92 02/28/20 06:00 Data NPU : 02/25/20 23:45 02/25/20 23:45 A&P Additional A&P Information (1) Depression: (2) Anxiety: (3) Alcohol use disorder: (4) Intellectual disability: (5) Autism: This is a 34 year old, white male, with alcohol use disorder, intellectual disability, depression and anxiety, and a question of autistic spectrum disorder, who presents reporting a desire to initiate medication but reports that there are some that have not been that good and he wanted to check first before he started it. Continue current medication. Encourage individual, group, and milieu therapy. Continue q-15 minute checks for safety. Recommend sober living treatment at the highest level of care to which the patient is willing to commit. Involuntary Hold Information 96 Hour Hold: 96 Hour Involuntary Admission: Yes 96 Hour Hold Ending Date: 03/02/20 96 Hour Hold Ending Time: 23:30 Attestations NPU Medical Necessity Statement*: Inpatient hospitalization is medically necessary and the clinically appropriate intervention at this time. We will monitor medications and make changes as indicated. Likely length of stay 2-4 days. Coding Level of Care Code Acute Heating Repair Technician for Familia Rivera
[2020-02-28 13:43] VITALS: BP 116/68; PULSE 85; RESP 18; TEMP 36.4; O2SAT 96
[2020-02-28] MEDS: trazodone 50 mg Tablet PO (21:46)
--- NOTE | 2020-02-28 21:47 | PC.NURSE ---
PRN TRAZODONE PT REQUESTING SLEEP AID. ADMINISTERED TRAZODONE 50MG PO. WILL MONITOR FOR MEDICATION EFFECTIVENESS.
[2020-02-28 22:00] VITALS: BP 147/94; PULSE 101; RESP 18; TEMP 36.4; O2SAT 96
[2020-02-29 06:00] VITALS: BP 106/70; PULSE 82; RESP 16; TEMP 36.5; O2SAT 98
[2020-02-29] MEDS: fluoxetine 20 mg Capsule PO (09:49)
[2020-02-29] MEDS: multivitamin therapeutic Tablet 1 TAB PO (09:49)
[2020-02-29] MEDS: thiamine 100 mg Tablet PO (09:49)
[2020-02-29] MEDS: folic acid 1 mg Tablet PO (09:49)
--- NOTE | 2020-02-29 10:43 | P.PN_ITS ---
Subjective NPU Subjective: Interval history: Servando presented today endorsing significant improvement on the medication. He clearly is feeling better, up and around, not isolating in his room, actually able to have eye contact during the conversation, reporting that he is acknowledging the impact of alcohol in his life and that he is going to have to figure out how to stop. He stated that is a general plan. We discussed the importance of having a treatment plan to discontinue the alcohol given that in reviewing his records, his interactions with [facility] have all had alcohol as a part of it or as a significant part of it. He acknowledged that his three hospitalizations all have had alcohol as a piece. He has some concerns about getting back to work, but we discussed the critical importance of him having a recovery plan that would allow him to have success. He understood and agreed to proceed as is documented in this note. Mental Status Exam MSE Comments: This is an obese, white male, with adequate dress, grooming, and approved eye contact. No abnormal movements except for improving psychomotor retardation. More cooperative with exam in no acute distress. Speech was more normal rate and volume and more spontaneous speech. Mood described as a pretty good; affect congruent. Thought process, organized. Thought content: patient denies suicidal or homicidal ideation. There were no delusions reported or noted, patient denied any auditory or visual hallucinations. Attention, concentration, and memory appear intact but were not formally tested. He is alert and oriented times three. Insight and judgment are improving. Impulse control is improving, and intellectual ability is impaired. Vitals/I&O/Wt Last Vital Signs Temp 97.7 F 02/29/20 06:00 Pulse 82 02/29/20 06:00 Resp 16 02/29/20 06:00 BP 106/70 02/29/20 06:00 Pulse Ox 98 02/29/20 06:00 Weight last 48 hrs Weight 98.543 kg Data NPU : 02/25/20 23:45 02/25/20 23:45 A&P Additional A&P Information (1) Depression: (2) Anxiety: (3) Alcohol use disorder: (4) Intellectual disability: (5) Autism: This is a 34 year old, white male, with alcohol use disorder, intellectual disability, depression and anxiety, and a question of autistic spectrum disorder, who presents reporting a desire to initiate medication but reports that there are some that have not been that good and he wanted to check first before he started it. Continue current medication. Encourage individual, group, and milieu therapy. Continue q-15 minute checks for safety. Recommend sober living treatment at the highest level of care to which the patient is willing to commit. Involuntary Hold Information 2 96 Hour Hold: 96 Hour Involuntary Admission: Yes 96 Hour Hold Ending Date: 03/02/20 96 Hour Hold Ending Time: 23:30 Attestations NPU Medical Necessity Statement*: Inpatient hospitalization is medically necessary and the clinically appropriate intervention at this time. We will monitor medications and make changes as indicated. Likely length of stay 1-3 days. Coding Level of Care Code Acute Computer Application Developer for Familia Rivera
[2020-02-29 14:00] VITALS: BP 128/77; PULSE 62; RESP 18; TEMP 37.3; O2SAT 99
[2020-02-29 20:40] VITALS: BP 150/99; PULSE 89; RESP 14; TEMP 36.7; O2SAT 98
[2020-03-01] MEDS: acetaminophen 325 mg Tablet 650 MG PO (03:53)
[2020-03-01] MEDS: hyDROXYzine 25 mg Capsule 50 MG PO (03:53)
[2020-03-01] MEDS: LORazepam 1 mg Tablet PO (04:17)
--- NOTE | 2020-03-01 04:20 | PC.NURSE ---
Addendum entered by Kaci Hernandez LPN 03/01/20 04:39: pt also given tylenol for c/o knee pain and vistaril. Original Note: pt noted at time of rounding with noticeable tremors and perspiration. pt c/o knee pain and being anxious. Dr Saldaña notified that pt's order for Ativan for withdrawal symptoms had been discontinued. requested new order. order received for Ativan 1mg po/IM q4hrs prn withdrawal symptoms.
[2020-03-01 04:24] LABS: Glucose Point of Care 108 mg/dL (70-110)
[2020-03-01 06:00] VITALS: BP 124/75; PULSE 91; RESP 18; TEMP 36.5; O2SAT 97
[2020-03-01 07:14] LABS: Glucose Point of Care 99 mg/dL (70-110)
[2020-03-01] MEDS: fluoxetine 20 mg Capsule PO (09:27)
[2020-03-01] MEDS: thiamine 100 mg Tablet PO (09:27)
[2020-03-01] MEDS: multivitamin therapeutic Tablet 1 TAB PO (09:27)
[2020-03-01] MEDS: folic acid 1 mg Tablet PO (09:27)
--- NOTE | 2020-03-01 15:14 | PM.NDC ---
Diagnoses at Discharge Discharge Diagnosis (1) Depression: Status: Acute (2) Anxiety: Status: Acute (3) Alcohol use disorder: Status: Acute (4) Intellectual disability: Status: Acute (5) Autism: Status: Acute Reason for Visit Reason for Visit: si, mhe Brief History: History of Present Illness Servando Merino is a 34 year old male who presented to the emergency room reporting that he was extremely depressed and suicidal, feels like the world is coming in on him. He reportedly had a flat affect, and he was a poor historian reportedly. He reported he was supposed to be on medication but was not taking any. He endorsed suicidal ideation. He was noted to have a blood alcohol level of 136. He was admitted to the neuropsychiatric unit for definitive treatment of those issues. He presented to the neuropsychiatric unit as a fairly poor historian, very guarded, and struggled to even turn and face this singer songwriter. He reports that he had been off his medication for an unknown period of time. Servando had reportedly gone to the emergency room earlier in the month with an episode where his mother was angry with him for leaving trash in her vehicle after which he posted on social media that he was going to kill himself, though he denied suicidal ideation when he was in the emergency room. He was brought in for evaluation where he acknowledged that he was feeling angry at the time and did post that but denied any issues like that. He denied that he would ever follow through on that. The case was discussed with Dr. Owens and he was evaluated and encouraged to follow-up with [facility] where he had a rn case mgr. There was a call after that by Servando? mother, very angry that he was not admitted but he had no problems or concerns reportedly after that. He is unable to articulate to me how often he drinks, how long he has been off the medication, when was the last time he was followed with regularity. His mother has had multiple calls with concerns about his drinking and things of that nature. He really had no conversation for that either. We reviewed his history given his limited ability to provide a clear history. His last inpatient hospitalization was in June of 2015 and we reviewed that document, which he reports was a fairly accurate depiction of his history. We also reviewed an excerpt of that note which is included below. We also reviewed one of his earliest hospitalizations which was at [facility] which was in March of 2012, and we discussed the fact that at that time he had just been placed on a 96-hour hold after he had been drinking and got pulled over by the [facility] police. He had been picked up for DWI and he was really freaking out because he was afraid that he was going to lose his job. He had some self-injurious behavior at the time that he was later embarrassed. He presented with an elevated blood alcohol level and was denying any significant alcohol problem at that time when he was working at [employer]. He identifies that he has some intellectual limitations, as he was in special education classes at school. There has been a discussion that he has held diagnoses of major depressive disorder, cannabis use disorder, and there have been questions of whether or not he meets the criteria for autism spectrum disorder which they refer to as Asperger?s. Currently he endorses a desire to initiate medication. We discussed briefly, the medication that he had been on. He was not sure and wanted me to check. We agreed to look into the possibility of starting Prozac 20 mg po qam and Buspar 15 mg po bid after discussing the risks, benefits, and alternatives. He agreed to consider starting these in the morning. There is depression and anxiety. Per his last [facility] eval: History of Present Illness Date of Service: Jun 18, 2015 Chief Complaint: Suicidal ideations HPI: The patient was admitted from the emergency room due to suicidal ideations. According to reports, he was transported to the emergency room by police after a fight with his mother. He looks very depressed, withdrawn with a flat affect. He states he stopped taking his medications for at least a month and a half because they made him feel sluggish. States he is not able to work on his current medications. He is not hearing voices and seeing things. He has been treated on the unit in the past and follows up at [facility] for outpatient care and carries previous diagnosis of major depressive disorder, cannabis dependence and borderline intellectual functioning. Review of Psychiatric Systems: Negative, except as above. Allergies: Coded Allergies: NO KNOWN DRUG ALLERGIES (Verified Allergy, Unknown, 11/21/13) Active Meds: Current Hospital Medications: Medications (Trade) Dose Ordered Sig/Gabriel Route PRN Reason Start Time Stop Time Status Last Admin Dose Admin Lorazepam (Ativan Tab) 0.5 mg Q4H PRN PO FOR MILD ANXIETY 06/17/15 11:15 Lorazepam (Ativan Tab) 1 mg Q4H PRN PO FOR MODERATE ANXIETY 06/17/15 11:15 Lorazepam (Ativan Tab) 2 mg Q4H PRN PO FOR SEVERE ANXIETY 06/17/15 11:15 Lorazepam (Ativan Inj) 2 mg Q4H PRN IM For Severe Aggression 06/17/15 11:15 Haloperidol Lactate (Haldol Inj) 5 mg Q4H PRN IM Severe Aggression 06/17/15 11:15 Diphenhydramine HCl (Benadryl Inj) 50 mg ONCE PRN IV Severe Extrapyramidal Symptoms 06/17/15 11:15 Benztropine Mesylate (Cogentin Tab) 1 mg BID PRN PO Mild Extrapyramidal symptoms 06/17/15 11:15 Benztropine Mesylate (Cogentin Inj) 1 mg ONCE PRN IM Severe Extrapyramidal Symptom 06/17/15 11:15 Acetaminophen (Tylenol Tab) 650 mg Q4H PRN PO FOR MILD PAIN 06/17/15 11:15 Trazodone HCl (Trazodone) 50 mg HS PRN PO FOR SLEEP 06/17/15 11:15 Nicotine (Nicoderm Patch) 21 mg DAILY PRN TD FOR WITHDRAWAL 06/17/15 11:15 Nicotine Polacrilex (Nicotine Gum) 2 mg Q2H PRN PO Withdrawal 06/17/15 11:15 Haloperidol (Haldol Tab) 5 mg Q4H PRN PO For agitation 06/17/15 11:15 Lorazepam (Ativan Tab) 2 mg Q4H PRN PO FOR AGITATION 06/17/15 11:15 Aripiprazole (Abilify Tab) 5 mg HS PO 06/18/15 22:00 Citalopram Hydrobromide (Celexa) 20 mg HS PO 06/18/15 22:00 Lisinopril (Prinivil) 20 mg DAILY PO 06/18/15 11:00 06/18/15 13:03 Home Meds: He was previously on Abilify, Celexa, trazodone and Topamax as well as lisinopril for blood pressure management. Past Medical History Past Medical/Social History: PAST PSYCHIATRIC HISTORY: As mentioned above. FAMILY PSYCHIATRIC HISTORY: father :alcoholic. There is no family history of suicide. SUBSTANCE USE HISTORY: History of marijuana use. PAST MEDICAL HISTORY: None reported. SOCIAL HISTORY: He was born in [place], [place], but raised in [place], [place]. His parents when he was very young and he moved around a lot as a child. He is single and has no children. He is a high school graduate and he currently works. He was in special education classes in school. He has never been in the . Physical Exam Vital Signs: Vital Signs: Date Time Temp Pulse Resp B/P Pulse Ox O2 Delivery O2 Flow Rate FiO2 06/18/15 06:22 98.4 90 18 131/88 96 06/17/15 13:31 Room Air Physical Exam: HEENT: Normal to inspection. NECK: Supple. CARDIOVASCULAR: S1 and S2 normal. CHEST: Clear. ABDOMEN: Soft. Nontender. NEUROLOGIC: No obvious deficits. EXTREMITIES: Normal to inspection. Review of systems: A fourteen-point Review of Systems is done, but is negative except as above. MENTAL STATUS EXAMINATION: In addition to what is mentioned above, The patient is alert and oriented. Speech is normal in rate, volume and tone. Patient describes mood as depressed. Affect is depressed. Insight and judgment are fair/poor. On cognitive examination, the patient appears cognitively limited: No, as evidenced by use of language and language comprehension. Data Result Diagram: 06/17/154906/17/[id number] document embedded image Impression AXIS I: Major depressive disorder, severe without psychotic features; cannabis use disorder. AXIS II: Borderline intellectual functioning AXIS III: None AXIS IV: Work related problems. AXIS V: Global Assessment of Function: 25. Hospital Course Hospital Course Servando presented to the emergency room endorsing depression and suicidal thoughts, feeling like the world was closing in on him. He was not a great historian in the emergency room and reported that he was not taking medication but wanted to get help. He was admitted to the neuropsychiatric unit for definitive treatment of those issues. His blood alcohol level was 136. He was guarded and a fairly poor historian. He very slowly acclimated to the individual, group, and milieu therapies provided. He was willing to initiate medication and was started on Prozac and Buspar. He responded well to those medications and had a safe withdrawal and had marked improvement. During the hospitalization, the patient had routine laboratory studies which were within normal limits, except for a few outliers. Additionally, he had a general medical evaluation which was within normal limits and revealed no new acute processes. Discharge Summary At the time of discharge the patient denied all lethality, was absent psychosis, and mood and anxiety were well managed. The patient endorsed a plan to avoid all drugs of abuse and to follow-up with outpatient services, as recommended. He was evaluated and deemed to be absent credible lethality, and had achieved the maximum benefit from an inpatient hospitalization, and so he was discharged. Involuntary Hold Information 96 Hour Hold: 96 Hour Involuntary Admission: Yes 96 Hour Hold Ending Date: 03/02/20 96 Hour Hold Ending Time: 23:30 Mental Status Exam MSE Comments: This is an obese, white male, with adequate dress, grooming, and approved eye contact. No abnormal movements except for improving psychomotor retardation. More cooperative with exam in no acute distress. Speech was more normal rate and volume and more spontaneous speech. Mood described as a pretty good; affect congruent. Thought process, organized. Thought content: patient denies suicidal or homicidal ideation. There were no delusions reported or noted, patient denied any auditory or visual hallucinations. Attention, concentration, and memory appear intact but were not formally tested. He is alert and oriented times three. Insight and judgment are improving. Impulse control is improving, and intellectual ability is impaired. Discharge Data Data Completed and Pending: Labs from last 24 hours 03/01/20 03/01/20 07:12 04:20 POC Glucose 99 108 Vitals: Last Vital Signs Temp 97.7 F 03/01/20 06:00 Pulse 91 03/01/20 06:00 Resp 18 03/01/20 06:00 BP 124/75 03/01/20 06:00 Pulse Ox 97 03/01/20 06:00 Discharge Plan Discharge Patient Disposition: Home Condition: Stable Prescriptions: New fluoxetine 20 mg Capsule 20 mg PO DAILY 30 Days Qty: 30 RF: 1 buspirone 15 mg Tablet 15 mg PO BID 30 Days Qty: 60 RF: 1 Continued No Known Home Medications RF: 0 Discharge Orders: Discharge Order (Routine); Ordered 03/01/20 Ordered By: Aristeo Saldaña Referrals: [facility] [Other] (Resrouce for support and substance abuse help) [facility] [Outside] (Call for information on walk in assessment. Usually it is done Sunday-Sunday, from 7:30am-2:00pm. However, processes have changed with COVID and they may want to do things differently.) [facility] [Outside] (Resource for inpatient and outpatient substance abuse treatment. They offer resources in [place] as well.) Discharge Diet: Regular Discharge Activity: Resume usual activity Discharge Date/Time: 03/01/20 18:06 Discharge Attestations NPU Time Spent in Discharge Care*: less than 30 min Specific Discharge Activities: Specific discharge activities: educating patient, discussing with family preservation caseworker/social workers/dc planners, documenting/other paperwork and evaluating patient/reviewing data Time Spent in Smoking Cessation: Time spent discussing smoking cessation with patient: 3 to 10 minutes Coding Level of Care Code Acute Subscription Crew Leader for g Fwd Diagnoses Depression F32.9 Anxiety F41.9 Alcohol use disorder Intellectual disability F79 Autism F84.0
[2020-03-01 15:34] VITALS: BP 124/75; PULSE 91; RESP 18; TEMP 36.5; O2SAT 97
== END 2020-03-01 18:06 | disposition home or self-care (01) | DRG 881 ==
LOC: ER 22:46 → NP 02-26 01:10
PROVIDERS: Emergency Medicine; Admitting Provider Psychiatry & Neurology Psychiatry; Visit Provider Psychiatry & Neurology Psychiatry
DX: F32.9 Major depressive disorder, single episode, unspecified (principal); R45.851 Suicidal ideations; F41.9 Anxiety disorder, unspecified; F12.90 Cannabis use, unspecified, uncomplicated; I10 Essential (primary) hypertension; Z72.89 Other problems related to lifestyle; F79 Unspecified intellectual disabilities; F84.0 Autistic disorder
CPT/HCPCS: 12345; 36416; 80053; 80306; 80307; 82962; 85025; 99284

== ENCOUNTER 2020-06-17 21:11 | Inpatient (IN) | payer SELFPAY ==
[2020-06-17 21:17] VITALS: BP 158/86; PULSE 97; RESP 18; TEMP 36.2; O2SAT 96; BMI 32.0
--- NOTE | 2020-06-17 22:16 | PC.NURSE ---
1:1 sitter at bedside.
[2020-06-17 22:20] LABS: Basophils # 0.1 10^3/uL (0.0-0.1); Basophils % 1.4 %; Eosinophils # 0.3 10^3/uL (0.0-0.8); Eosinophils % 4.1 %; Hemoglobin 16.2 g/dL (11.7-16.6); Lymphocytes # 3.7 10^3/uL (0.8-4.8); Lymphocytes % 43.6 %; Mean Corpuscular HGB Conc 34.5 g/dL (30.0-36.0); Mean Platelet Volume 9.6 fL (7.4-10.4); Monocytes # 0.6 10^3/uL (0.2-0.9); Neutrophils # 3.64 10^3/uL (1.8-7.7); Neutrophils % 43.5 %; Nucleated Red Blood Cells % 0 %; Platelet Count 346 10^3/cmm (130-400); Red Blood Count 5.22 10^6/uL (4.1-5.3); White Blood Count 8.4 10^3/uL (4.0-10.0)
--- NOTE | 2020-06-17 22:41 | W.ED.PSYCH ---
HPI - Psych General: Chief Complaint: Psychiatric Symptoms Stated Complaint: MHE Time Seen by Provider: 06/17/20 21:24 Source: patient History of Present Illness: HPI Narrative: Patient is a 35-year-old male seen for suicidal ideation. He arrives escorted by local law enforcement as he made remarks to them that he wished he could . In conversation with him, he relates that he is down on his luck, has difficulty paying his bills, and recently received another garnish to his wages. He does not have medical insurance and states that he has had suicidal ideation in the past, with 4 specific events he remembers. He states that he supposed to be on medicine but does not have money for it. He states that if he had a gun, he would shoot himself in the head. He denies fever, cough, chest pain, shortness of breath, and has no other acute complaints. Review of Systems General: Reports: 10 or more systems reviewed and unremarkable except in HPI and below PFSH ED PFSH: Medical History (Updated 06/17/20 @ 22:54 by Trevor Macias MD) Hypertension Physical Exam Const: COMMON NORMALS: no acute distress, patient oriented x3 and alert GENERAL APPEARANCE: cooperative HENMT: COMMON NORMALS: normocephalic and atraumatic HEAD & SCALP: normocephalic and atraumatic Eye: COMMON NORMALS: Equal, round and reactive pupils present, EOMs intact bilaterally and no scleral icterus PUPIL: Yes Equal, round and reactive pupils present Resp: COMMON NORMALS: normal respiratory effort and No retractions Cardio: COMMON NORMALS: regular rate, regular rhythm and No murmurs present (Cardio) RATE: regular rate RHYTHM: regular rhythm GI: COMMON NORMALS: Normal to inspection, nondistended, normoactive bowel sounds present, Soft to palpation and non-tender PALPATION: Yes Soft to palpation Neuro: COMMON NORMALS: patient oriented x3 SENSORIUM/ORIENTATION: Yes alert Psych: COMMON NORMALS: Normal thought process present, cooperative and speech normal APPEARANCE: Yes grossly normal ACTIVITY/MOTOR BEHAVIOR: Yes psychomotor agitation SPEECH: Yes normal speech MOOD & AFFECT: Yes depressed mood and Yes irritable THOUGHT PROCESS: Normal thought process present THOUGHT CONTENT: Yes Suicidality present and No Homicidality present ATTENTION/CONCENTRATION: Yes attention grossly intact and Yes concentration grossly intact MEMORY/COGNITION: Yes memory grossly intact and Yes cognition grossly intact INSIGHT: Fair insight present (Psych) JUDGEMENT: Fair judgement present (Psych) Skin: COMMON NORMALS: no rashes or lesions noted GENERAL SKIN EXAM: no rashes or lesions noted MDM - Psych MDM Narrative: Medical decision making narrative: Patient remained hemodynamically stable throughout ED course. Labs are drawn for psychiatric clearance. He agrees to be seen by psychiatry to see if they can help. Pertinent details of the case were shared with the oncoming emergency physician who will ensure that pending blood tests are consistent with medical clearance. I spoke with Dr. Saldaña, on-call psychiatry who agrees to meet the patient pending medical clearance. Lab Data: Labs: Lab Results 06/17/20 06/17/20 06/17/20 Range/Units 21:50 21:50 21:50 WBC 8.4 (4.0-10.0) 10^3/ uL RBC 5.22 (4.1-5.3) 10^6/u L Hgb 16.2 (11.7-16.6) g/dL Hct 47.0 (42.0-52.0) % MCV 90.0 (80-94) fL MCH 31.0 (28.0-34.0) pg MCHC 34.5 (30.0-36.0) g/dL RDW 12.0 L (12.1-15.1) % Plt Count 346 (130-400) 10^3/c mm MPV 9.6 (7.4-10.4) fL Neut % (Auto) 43.5 % Lymph % (Auto) 43.6 % Atkinson % (Auto) 7.0 % Eos % (Auto) 4.1 % Baso % (Auto) 1.4 % Neut # (Auto) 3.64 (1.8-7.7) 10^3/u L Lymph # (Auto) 3.7 (0.8-4.8) 10^3/u L Atkinson # (Auto) 0.6 (0.2-0.9) 10^3/u L Eos # (Auto) 0.3 (0.0-0.8) 10^3/u L Baso # (Auto) 0.1 (0.0-0.1) 10^3/u L Nucleated RBC % (a uto) 0 % Nucleated RBCs # 0.0 /100WBC Sodium 142 (136-145) mmol/L Chloride 104 (98-107) mmol/L Carbon Dioxide 25 (22-29) mmol/L Anion Gap 16.4 (5-19) BUN 7 (6-20) mg/dL Creatinine 0.7 (0.7-1.2) mg/dL GFR Calculation 129.1 (90-130) mL/min Glucose 97 (65-115) mg/dL Calculated Osmolal ity 292 (285-295) mOsm/k g Calcium 9.4 (8.5-10.5) mg/dL Total Bilirubin 0.4 (0.15-1.2) mg/dL AST 16 (0-40) U/L ALT 18 (0-41) U/L Alkaline Phosphata se 89 (40-130) IU/L Total Protein 7.7 (6.6-8.7) g/dL Albumin 4.6 (3.5-5.2) g/dL Globulin 3.1 (1.3-4.6) g/dL Urine Opiates Scre en Negative (Negative) ng/mL Ur Barbiturates Sc reen Negative (Negative) ng/mL Ur Phencyclidine S crn Negative (Negative) ng/mL Ur Amphetamines Sc reen Negative (Negative) ng/mL U Benzodiazepines Scrn Negative (Negative) ng/mL Urine Cocaine Scre en Negative (Negative) ng/mL U Marijuana (THC) Screen Positive H (Negative) ng/mL Discharge Plan Discharge Patient Disposition: Admitted As Inpatient Clinical Impression: Depression with suicidal ideation Condition: Stable Discharge Diet: Usual diet Discharge Activity: Resume usual activity Coding Level of Care Code ED Clay Digger for Familia Fwd Exam Comprehensive
[2020-06-17 22:50] LABS: Amphetamines Screen Urine Negative (Negative); Barbiturates Screen Urine Negative (Negative); Benzodiazepines Screen Urine Negative (Negative); Cocaine Screen Urine Negative (Negative); Opiate Screen Urine Negative (Negative); PCP Screen Urine Negative (Negative); THC Screen Urine Positive (Negative)
[2020-06-17 22:51] VITALS: BP 137/84; PULSE 85; RESP 18; TEMP 37.1; O2SAT 95
[2020-06-17 22:51] LABS: Alanine Aminotransferase 18 U/L (0-41); Albumin Level 4.6 g/dL (3.5-5.2); Alcohol Level 158 mg/dL (0-10); Alkaline Phosphatase 89 IU/L (40-130); Anion Gap 16.4 (5-19); Aspartate Amino Transferase 16 U/L (0-40); Blood Urea Nitrogen 7 mg/dL (6-20); Calcium 9.4 mg/dL (8.5-10.5); Carbon Dioxide 25 mmol/L (22-29); Chloride 104 mmol/L (98-107); Globulin 3.1 g/dL (1.3-4.6); Glomerular Filtration Rate 129.1 mL/min (90-130); Glucose 97 mg/dL (65-115); Osmolality Calculated 292 mOsm/kg (285-295); Potassium 3.4 mmol/L (3.5-5.1); Sodium 142 mmol/L (136-145); Total Bilirubin 0.4 mg/dL (0.15-1.2); Total Protein 7.7 g/dL (6.6-8.7)
[2020-06-17 22:56] LABS: Acetaminophen < 5.0 ug/mL (10-30); Salicylate < 0.3 mg/dL (3-10)
[2020-06-17 23:45] VITALS: BP 136/95; PULSE 93; RESP 18; TEMP 36.2; O2SAT 98
[2020-06-18] MEDS: hyDROXYzine 25 mg Capsule 50 MG PO ×2 (00:20→21:05)
--- NOTE | 2020-06-18 00:20 | PC.NURSE ---
PRN VISTARIL ADMINISTERED VISTARIL 50MG PO FOR PT C/O OF INCREASING ANXIETY. PT IS VERY UPSET AND FEELS THAT HIS LIFE IS FALLING APART. WILL CONTINUE TO MONITOR AND SUPPORT PATIENT.
--- NOTE | 2020-06-18 00:35 | PC.NURSE ---
Addendum entered by Fabi Urrutia RN 06/18/20 00:43: CORRECTION TO DATE OF LAST TREATMENT .. PT WAS IN THE UNIT IN FEBRUARY 2020 BUT LAST FILLED HIS RX IN APRIL 2020 Original Note: CIWA 6/New Admit Patient is a 35-year-old male seen for suicidal ideation. He arrives escorted by local law enforcement as he made remarks to them that he wished he could . In conversation with him, he relates that he is down on his luck, has difficulty paying his bills, and recently received another garnish to his wages. He does not have medical insurance and states that he has had suicidal ideation in the past, with 4 specific events he remembers. He states that he supposed to be on medicine but does not have money for it. He states that if he had a gun, he would shoot himself in the head. He denies fever, cough, chest pain, shortness of breath, and has no other acute complaints. On arrival to the NPU, pt is visible upset, prone to anger, and is requesting something to make his racing thoughts go away. He received Visteril 50mg PO at 0020. He is in his room, he is anxious, muscles in his jaw are clenched, affect flat, very guarded, liable mood, will continue to monitor this pt. PT states that he is drinking daily, says he drinks only 2-3 cans of beer after work. Bal 158 on admit, Pt is positive for marijuana. PT has CIWA of [address] Dr[address] Saldaña, to restart medications he was on 2 months ago when he was in this unit. He is to start his Buspar 15mg PO BID, Fluoxetine 20mg PO caplet in the morning. Will continue to monitor effectiveness of Visteril and for any alcohol withdrawl s/s.
--- NOTE | 2020-06-18 03:44 | PC.NURSE ---
Follow up Pt has been sleeping since he came to the unit. He is experiencing heightened emotions at the moment that range from anger to fear. Pt will answer questions when you directly ask him short direct questions but becomes overwhelmed easily. He has been off his medications due to financial reasons for over a month. Will continue to monitor this patient for any new s/s of distress.
[2020-06-18 06:00] VITALS: BP 99/62; PULSE 88; RESP 16; TEMP 36.7; O2SAT 95
[2020-06-18] MEDS: fluoxetine 20 mg Capsule PO (08:10)
[2020-06-18 13:21] VITALS: BP 108/71; PULSE 76; RESP 20; TEMP 37; O2SAT 76
--- NOTE | 2020-06-18 19:35 | PM.NHP ---
Providers/Chief Complaint Admitting Physician: Aristeo Saldaña MD Chief Complaint: MHE HPI NPU History of Present Illness Servando Merino is a 35 year old male who presented to the emergency department with the following report: Chief Complaint: Psychiatric Symptoms Stated Complaint: MHE Time Seen by Provider: 06/17/20 21:24 Source: patient History of Present Illness: HPI Narrative: Patient is a 35-year-old male seen for suicidal ideation. He arrives escorted by local law enforcement as he made remarks to them that he wished he could . In conversation with him, he relates that he is down on his luck, has difficulty paying his bills, and recently received another garnish to his wages. He does not have medical insurance and states that he has had suicidal ideation in the past, with 4 specific events he remembers. He states that he supposed to be on medicine but does not have money for it. He states that if he had a gun, he would shoot himself in the head. He denies fever, cough, chest pain, shortness of breath, and has no other acute complaints. He was admitted to the neuropsychiatric unit for treatment of those issues. Servando presents today in an almost d?j? vu of his last visit in office. He presents with suicidal ideation which had a nidus related to finances and limited resources. He had a positive BAL and this time also had a positive UDS for cannabis. He reports that he was taking his medication initially then he feels like it stopped being as helpful. We discussed the fact that with the medications the purpose of follow-up is that sometimes they need to be increased. There is no sign that he followed up at [facility] [place]. He was fairly subdued and isolative to his room and in bed. He answered questions but was not forthcoming with additional information if not specifically asked. Outside of the recent challenges he denied any substantive changes to his psychosocial history. We reviewed his most recent [facility] inpatient evaluation and an excerpt is included below. Per his 02/26/2020 [facility] inpatient eval: History of Present Illness Servando Merino is a 34 year old male who presented to the emergency room reporting that he was extremely depressed and suicidal, feels like the world is coming in on him. He reportedly had a flat affect, and he was a poor historian reportedly. He reported he was supposed to be on medication but was not taking any. He endorsed suicidal ideation. He was noted to have a blood alcohol level of 136. He was admitted to the neuropsychiatric unit for definitive treatment of those issues. He presented to the neuropsychiatric unit as a fairly poor historian, very guarded, and struggled to even turn and face this bond writer. He reports that he had been off his medication for an unknown period of time. Servando had reportedly gone to the emergency room earlier in the month with an episode where his mother was angry with him for leaving trash in her vehicle after which he posted on social media that he was going to kill himself, though he denied suicidal ideation when he was in the emergency room. He was brought in for evaluation where he acknowledged that he was feeling angry at the time and did post that but denied any issues like that. He denied that he would ever follow through on that. The case was discussed with Dr. Owens and he was evaluated and encouraged to follow-up with [facility] [place] where he had a major case detective. There was a call after that by Servando? mother, very angry that he was not admitted but he had no problems or concerns reportedly after that. He is unable to articulate to me how often he drinks, how long he has been off the medication, when was the last time he was followed with regularity. His mother has had multiple calls with concerns about his drinking and things of that nature. He really had no conversation for that either. We reviewed his history given his limited ability to provide a clear history. His last inpatient hospitalization was in June of 2015 and we reviewed that document, which he reports was a fairly accurate depiction of his history. We also reviewed an excerpt of that note which is included below. We also reviewed one of his earliest hospitalizations which was at [facility] which was in March of 2012, and we discussed the fact that at that time he had just been placed on a 96-hour hold after he had been drinking and got pulled over by the [facility] police. He had been picked up for DWI and he was really freaking out because he was afraid that he was going to lose his job. He had some self-injurious behavior at the time that he was later embarrassed. He presented with an elevated blood alcohol level and was denying any significant alcohol problem at that time when he was working at [employer]. He identifies that he has some intellectual limitations, as he was in special education classes at school. There has been a discussion that he has held diagnoses of major depressive disorder, cannabis use disorder, and there have been questions of whether or not he meets the criteria for autism spectrum disorder which they refer to as Asperger?s. Currently he endorses a desire to initiate medication. We discussed briefly, the medication that he had been on. He was not sure and wanted me to check. We agreed to look into the possibility of starting Prozac 20 mg po qam and Buspar 15 mg po bid after discussing the risks, benefits, and alternatives. He agreed to consider starting these in the morning. There is depression and anxiety. Per his last [facility] eval: History of Present Illness Date of Service: Jun 18, 2015 Chief Complaint: Suicidal ideations HPI: The patient was admitted from the emergency room due to suicidal ideations. According to reports, he was transported to the emergency room by police after a fight with his mother. He looks very depressed, withdrawn with a flat affect. He states he stopped taking his medications for at least a month and a half because they made him feel sluggish. States he is not able to work on his current medications. He is not hearing voices and seeing things. He has been treated on the unit in the past and follows up at [facility] for outpatient care and carries previous diagnosis of major depressive disorder, cannabis dependence and borderline intellectual functioning. Review of Psychiatric Systems: Negative, except as above. Allergies: Coded Allergies: NO KNOWN DRUG ALLERGIES (Verified Allergy, Unknown, 11/21/13) Active Meds: Current Hospital Medications: Medications (Trade) Dose Ordered Sig/Gabriel Route PRN Reason Start Time Stop Time Status Last Admin Dose Admin Lorazepam (Ativan Tab) 0.5 mg Q4H PRN PO FOR MILD ANXIETY 06/17/15 11:15 Lorazepam (Ativan Tab) 1 mg Q4H PRN PO FOR MODERATE ANXIETY 06/17/15 11:15 Lorazepam (Ativan Tab) 2 mg Q4H PRN PO FOR SEVERE ANXIETY 06/17/15 11:15 Lorazepam (Ativan Inj) 2 mg Q4H PRN IM For Severe Aggression 06/17/15 11:15 Haloperidol Lactate (Haldol Inj) 5 mg Q4H PRN IM Severe Aggression 06/17/15 11:15 Diphenhydramine HCl (Benadryl Inj) 50 mg ONCE PRN IV Severe Extrapyramidal Symptoms 06/17/15 11:15 Benztropine Mesylate (Cogentin Tab) 1 mg BID PRN PO Mild Extrapyramidal symptoms 06/17/15 11:15 Benztropine Mesylate (Cogentin Inj) 1 mg ONCE PRN IM Severe Extrapyramidal Symptom 06/17/15 11:15 Acetaminophen (Tylenol Tab) 650 mg Q4H PRN PO FOR MILD PAIN 06/17/15 11:15 Trazodone HCl (Trazodone) 50 mg HS PRN PO FOR SLEEP 06/17/15 11:15 Nicotine (Nicoderm Patch) 21 mg DAILY PRN TD FOR WITHDRAWAL 06/17/15 11:15 Nicotine Polacrilex (Nicotine Gum) 2 mg Q2H PRN PO Withdrawal 06/17/15 11:15 Haloperidol (Haldol Tab) 5 mg Q4H PRN PO For agitation 06/17/15 11:15 Lorazepam (Ativan Tab) 2 mg Q4H PRN PO FOR AGITATION 06/17/15 11:15 Aripiprazole (Abilify Tab) 5 mg HS PO 06/18/15 22:00 Citalopram Hydrobromide (Celexa) 20 mg HS PO 06/18/15 22:00 Lisinopril (Prinivil) 20 mg DAILY PO 06/18/15 11:00 06/18/15 13:03 Home Meds: He was previously on Abilify, Celexa, trazodone and Topamax as well as lisinopril for blood pressure management. Past Medical History Past Medical/Social History: PAST PSYCHIATRIC HISTORY: As mentioned above. FAMILY PSYCHIATRIC HISTORY: father :alcoholic. There is no family history of suicide. SUBSTANCE USE HISTORY: History of marijuana use. PAST MEDICAL HISTORY: None reported. SOCIAL HISTORY: He was born in [place], [place], but raised in [place], [place]. His parents when he was very young and he moved around a lot as a child. He is single and has no children. He is a high school graduate and he currently works. He was in special education classes in school. He has never been in the . Physical Exam Vital Signs: Vital Signs: Date Time Temp Pulse Resp B/P Pulse Ox O2 Delivery O2 Flow Rate FiO2 06/18/15 06:22 98.4 90 18 131/88 96 06/17/15 13:31 Room Air Physical Exam: HEENT: Normal to inspection. NECK: Supple. CARDIOVASCULAR: S1 and S2 normal. CHEST: Clear. ABDOMEN: Soft. Nontender. NEUROLOGIC: No obvious deficits. EXTREMITIES: Normal to inspection. Review of systems: A fourteen-point Review of Systems is done, but is negative except as above. MENTAL STATUS EXAMINATION: In addition to what is mentioned above, The patient is alert and oriented. Speech is normal in rate, volume and tone. Patient describes mood as depressed. Affect is depressed. Insight and judgment are fair/poor. On cognitive examination, the patient appears cognitively limited: No, as evidenced by use of language and language comprehension. Data Result Diagram: 06/17/154906/17/1549 document embedded image Impression AXIS I: Major depressive disorder, severe without psychotic features; cannabis use disorder. AXIS II: Borderline intellectual functioning AXIS III: None AXIS IV: Work related problems. AXIS V: Global Assessment of Function: 25. Meds NPU Home Medications Medication Instructions Recorded Confirmed Last Taken Type buspirone [BuSpar] 15 mg PO BID 06/18/20 06/18/20 04/22/20 History fluoxetine 20 mg PO DAILY 06/18/20 06/18/20 04/22/20 History Allergies Allergy/AdvReac Type Severity Reaction Status Date / Time No Known Allergies Allergy Verified 06/17/20 21:47 PFSH NPU PFSH: Medical History (Updated 06/19/20 @ 05:51 by Aristeo Saldaña MD) Hypertension Mental Status Exam MSE Comments: This is an obese white male with hydrocodone, with limited grooming and eye contact. No abnormal movements except for profound psychomotor retardation. Semicooperative with exam in mild to moderate distress. Speech was limited and decreased rate and volume. Mood described as depressed, affect flat. Thought process organized. Thought content: Patient endorsed suicidal ideation but denied homicidal ideation, there were no delusions reported or noted, he denied any auditory or visual hallucinations. Attention and concentration appeared intact and memory was reliable and were formally tested. He is alert and oriented x3. Insight and judgment are impaired, impulse control is impaired. Vitals/I&O/Wt Last Vital Signs Temp 97.9 F 06/18/20 21:13 Pulse 83 06/18/20 21:13 Resp 18 06/18/20 21:13 BP 109/70 06/18/20 21:13 Pulse Ox 96 06/18/20 21:13 Weight last 48 hrs Weight 98.43 kg Data NPU : 06/17/20 21:50 06/17/20 21:50 A&P Assessment and plan (1) Depression with suicidal ideation: Status: Acute (2) Intellectual disability: Status: Acute (3) Alcohol use disorder: Status: Acute (4) Anxiety: Status: Acute (5) Hypertension: Status: Acute (6) Autism: Status: Acute (7) Cannabis abuse: Status: Acute Additional A&P Information This is a 35-year-old white male with a long history of depression, alcohol use and intellectual disability who presents with psych his last hospitalization, depressed, isolative, suicidal and not on his medication. 1. Continue current medication. We will plan for an increase in his medication post discharge and implore him to follow-up with [facility] [place]. 2. Continue every 15 minute checks for safety. 3. Continue CIWA protocol. 4. Encourage individual, group and milieu therapy. 5. Encourage sober living treatment after discharge at the highest level of care to which he is willing to commit. Involuntary Hold Information 96 Hour Hold: 96 Hour Involuntary Admission: No 96 Hour Hold Ending Date: 03/02/20 96 Hour Hold Ending Time: 23:30 Attestations NPU Medical Necessity Statement*: Inpatient hospitalization is medically necessary and the clinically appropriate intervention at this time. We will monitor medications and make changes indicated. He will be in the hospital for over 2 midnights. Likely length of stay 4 to 6 days. Coding Level of Care Code Acute Ecological Economist for Familia Rivera Diagnoses Depression with suicidal ideation F32.9; R45.851 Intellectual disability F79 Alcohol use disorder Anxiety F41.9 Hypertension I10 Autism F84.0 Cannabis abuse F12.10
[2020-06-18 21:13] VITALS: BP 109/70; PULSE 83; RESP 18; TEMP 36.6; O2SAT 96
[2020-06-19 05:39] VITALS: BP 107/70; PULSE 70; RESP 18; TEMP 36.7; O2SAT 97
[2020-06-19] MEDS: fluoxetine 20 mg Capsule PO (08:13)
[2020-06-19 13:45] VITALS: BP 113/83; PULSE 78; RESP 18; TEMP 37.1
--- NOTE | 2020-06-19 16:50 | PM.NPN ---
Subjective NPU Subjective: Interval history: Servando presents today continuing to be quite despondent and and feeling like there is no used to go on. He reports this 25% garnish meant or break him and he already was barely scraping by. He was very distraught as he continued to lament about what he can possibly do because of patient admitted supports and resources. He is very isolative, he has not been eating often represents a significant safety risk. Mental Status Exam MSE Comments: This is an obese white male with hospital scrubs on, with limited grooming and eye contact. No abnormal movements except for profound psychomotor retardation. Cooperative with exam in moderate distress. Speech was decreased rate and volume. Mood described as depressed, affect flat. Thought process organized. Thought content: Patient endorsed suicidal ideation but denied homicidal ideation, there were no delusions reported or noted, he denied any auditory or visual hallucinations. Attention and concentration appeared intact and memory was reliable and were formally tested. He is alert and oriented x3. Insight and judgment are impaired, impulse control is impaired. Vitals/I&O/Wt Last Vital Signs Temp 98.9 F 06/19/20 20:00 Pulse 68 06/19/20 20:00 Resp 17 06/19/20 20:00 BP 99/62 06/19/20 20:00 Pulse Ox 98 06/19/20 20:00 Data NPU : 06/17/20 21:50 06/17/20 21:50 A&P Additional A&P Information (1) Depression with suicidal ideation: (2) Intellectual disability: (3) Alcohol use disorder: (4) Anxiety: (5) Hypertension: (6) Autism: (7) Cannabis abuse: Additional A&P Information This is a 35-year-old white male with a long history of depression, alcohol use and intellectual disability who presents with psych his last hospitalization, depressed, isolative, suicidal and not on his medication. 1. Continue current medication. 2. Continue every 15 minute checks for safety. 3. Continue CIWA protocol. 4. Encourage individual, group and milieu therapy. 5. Encourage sober living treatment after discharge at the highest level of care to which he is willing to commit. 6. After treatment team identified there is any chance for an appeal for lesser withdrawal or any other resources available in the community. Involuntary Hold Information 96 Hour Hold: 96 Hour Involuntary Admission: No 96 Hour Hold Ending Date: 03/02/20 96 Hour Hold Ending Time: 23:30 Attestations NPU Medical Necessity Statement*: Inpatient hospitalization is medically necessary and the clinically appropriate intervention at this time. We will monitor medications and make changes indicated. Likely length of stay 4 to 6 days. Coding Level of Care Code Acute Paper Machine Back Tender for Familia Rivera
[2020-06-19 20:00] VITALS: BP 99/62; PULSE 68; RESP 17; TEMP 37.2; O2SAT 98
[2020-06-19] MEDS: trazodone 50 mg Tablet PO (20:18)
[2020-06-19] MEDS: hyDROXYzine 25 mg Capsule 50 MG PO (20:18)
[2020-06-20 06:00] VITALS: BP 114/68; PULSE 64; RESP 17; TEMP 36.4; O2SAT 97
[2020-06-20] MEDS: fluoxetine 20 mg Capsule PO (08:07)
[2020-06-20 14:00] VITALS: BP 105/66; PULSE 86; RESP 18; TEMP 36.6; O2SAT 97
--- NOTE | 2020-06-20 17:11 | PM.NPN ---
Subjective NPU Subjective: Interval history: Servando presents today continuing to be quite depressed and continues to be quite concerned about how he is going to manage his economic situation but the limited supports and poor financial health that he finds himself in. 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 He did however that we work with the treatment team in the morning to see what resources exist in the community that might be able to offset the challenges that he is about the face. He is also struggling with the fact that anytime here is less money he is going to make it so he starting to be anxious about getting back to work. Mental Status Exam MSE Comments: This is an obese white male with hospital scrubs on, with limited grooming and eye contact. No abnormal movements except for significant psychomotor retardation. Cooperative with exam in moderate distress. Speech was decreased rate and volume. Mood described as depressed, affect flat. Thought process organized. Thought content: Patient endorsed suicidal ideation but denied homicidal ideation, there were no delusions reported or noted, he denied any auditory or visual hallucinations. Attention and concentration appeared intact and memory was reliable and were formally tested. He is alert and oriented x3. Insight and judgment are impaired, impulse control is impaired. Vitals/I&O/Wt Last Vital Signs Temp 99.1 F 06/20/20 20:11 Pulse 74 06/20/20 20:11 Resp 15 06/20/20 20:11 BP 108/68 06/20/20 20:11 Pulse Ox 94 06/20/20 20:11 Weight last 48 hrs Weight 98.43 kg Data NPU : 06/17/20 21:50 06/17/20 21:50 A&P Additional A&P Information (1) Depression with suicidal ideation: (2) Intellectual disability: (3) Alcohol use disorder: (4) Anxiety: (5) Hypertension: (6) Autism: (7) Cannabis abuse: This is a 35-year-old white male with a long history of depression, alcohol use and intellectual disability who presents with psych his last hospitalization, depressed, isolative, suicidal and not on his medication. 1. Continue current medication. 2. Continue every 15 minute checks for safety. 3. Continue CIWA protocol. 4. Encourage individual, group and milieu therapy. 5. Encourage sober living treatment after discharge at the highest level of care to which he is willing to commit. 6. After treatment team identified there is any chance for an appeal for lesser withdrawal or any other resources available in the community. Involuntary Hold Information 96 Hour Hold: 96 Hour Involuntary Admission: No 96 Hour Hold Ending Date: 03/02/20 96 Hour Hold Ending Time: 23:30 Attestations NPU Medical Necessity Statement*: Inpatient hospitalization is medically necessary and the clinically appropriate intervention at this time. We will monitor medications and make changes indicated. Likely length of stay 2-4 days. Coding Level of Care Code Acute Manager Technical Training for Familia Rivera
--- NOTE | 2020-06-20 20:06 | PC.NURSE ---
RESTING IN BED, APPEARS DEPRESSED OVER COURT TOMORROW FOR DUI. DENIES WANTING TO HARM SELF. DID NOT GET UP FOR SNACKS.
[2020-06-20 20:11] VITALS: BP 108/68; PULSE 74; RESP 15; TEMP 37.3; O2SAT 94
[2020-06-20] MEDS: hyDROXYzine 25 mg Capsule 50 MG PO (20:12)
[2020-06-20] MEDS: trazodone 50 mg Tablet PO (20:13)
[2020-06-21 06:00] VITALS: BP 108/68; PULSE 67; RESP 16; TEMP 36.3; O2SAT 100
[2020-06-21] MEDS: fluoxetine 20 mg Capsule PO (08:05)
[2020-06-21 13:36] VITALS: BP 127/78; PULSE 95; RESP 18; TEMP 36.9; O2SAT 97
--- NOTE | 2020-06-21 15:57 | P.DS_ITS ---
Diagnoses at Discharge Discharge Diagnosis (1) Depression with suicidal ideation: Status: Acute (2) Intellectual disability: Status: Acute (3) Alcohol use disorder: Status: Acute (4) Anxiety: Status: Acute (5) Hypertension: Status: Acute (6) Autism: Status: Acute (7) Cannabis abuse: Status: Acute Reason for Visit Reason for Visit: MHE Brief History: History of Present Illness Servando Merino is a 35 year old male who presented to the emergency department with the following report: Chief Complaint: Psychiatric Symptoms Stated Complaint: MHE Time Seen by Provider: 06/17/20 21:24 Source: patient History of Present Illness: HPI Narrative: Patient is a 35-year-old male seen for suicidal ideation. He arrives escorted by local law enforcement as he made remarks to them that he wished he could . In conversation with him, he relates that he is down on his luck, has difficulty paying his bills, and recently received another garnish to his wages. He does not have medical insurance and states that he has had suicidal ideation in the past, with 4 specific events he remembers. He states that he supposed to be on medicine but does not have money for it. He states that if he had a gun, he would shoot himself in the head. He denies fever, cough, chest pain, shortness of breath, and has no other acute complaints. He was admitted to the neuropsychiatric unit for treatment of those issues. Servando presents today in an almost d?j? vu of his last visit in office. He presents with suicidal ideation which had a nidus related to finances and limited resources. He had a positive BAL and this time also had a positive UDS for cannabis. He reports that he was taking his medication initially then he feels like it stopped being as helpful. We discussed the fact that with the medications the purpose of follow-up is that sometimes they need to be increased. There is no sign that he followed up at [facility]. He was fairly subdued and isolative to his room and in bed. He answered questions but was not forthcoming with additional information if not specifically asked. Outside of the recent challenges he denied any substantive changes to his psychosocial history. We reviewed his most recent [facility] inpatient evaluation and an excerpt is included below. Per his 02/26/2020 [facility] inpatient eval: History of Present Illness Servando Merino is a 34 year old male who presented to the emergency room reporting that he was extremely depressed and suicidal, feels like the world is coming in on him. He reportedly had a flat affect, and he was a poor historian reportedly. He reported he was supposed to be on medication but was not taking any. He endorsed suicidal ideation. He was noted to have a blood alcohol level of 136. He was admitted to the neuropsychiatric unit for definitive treatment of those issues. He presented to the neuropsychiatric unit as a fairly poor historian, very guarded, and struggled to even turn and face this short story writer. He reports that he had been off his medication for an unknown period of time. Servando had reportedly gone to the emergency room earlier in the month with an episode where his mother was angry with him for leaving trash in her vehicle after which he posted on social media that he was going to kill himself, though he denied suicidal ideation when he was in the emergency room. He was brought in for evaluation where he acknowledged that he was feeling angry at the time and did post that but denied any issues like that. He denied that he would ever follow through on that. The case was discussed with Dr. Owens and he was evaluated and encouraged to follow-up with [facility] where he had a director of casework services. There was a call after that by Servando? mother, very angry that he was not admitted but he had no problems or concerns reportedly after that. He is unable to articulate to me how often he drinks, how long he has been off the medication, when was the last time he was followed with regularity. His mother has had multiple calls with concerns about his drinking and things of that nature. He really had no conversation for that either. We reviewed his history given his limited ability to provide a clear history. His last inpatient hospitalization was in June of 2015 and we reviewed that document, which he reports was a fairly accurate depiction of his history. We also reviewed an excerpt of that note which is included below. We also reviewed one of his earliest hospitalizations which was at [facility] which was in March of 2012, and we discussed the fact that at that time he had just been placed on a 96-hour hold after he had been drinking and got pulled over by the [facility] police. He had been picked up for DWI and he was really freaking out because he was afraid that he was going to lose his job. He had some self-injurious behavior at the time that he was later embarrassed. He presented with an elevated blood alcohol level and was denying any significant alcohol problem at that time when he was working at [employer]. He identifies that he has some intellectual limitations, as he was in special education classes at school. There has been a discussion that he has held diagnoses of major depressive disorder, cannabis use disorder, and there have been questions of whether or not he meets the criteria for autism spectrum disorder which they refer to as Asperger?s. Currently he endorses a desire to initiate medication. We discussed briefly, the medication that he had been on. He was not sure and wanted me to check. We agreed to look into the possibility of starting Prozac 20 mg po qam and Buspar 15 mg po bid after discussing the risks, benefits, and alternatives. He agreed to consider starting these in the morning. There is depression and anxiety. Per his last [facility] eval: History of Present Illness Date of Service: Jun 18, 2015 Chief Complaint: Suicidal ideations HPI: The patient was admitted from the emergency room due to suicidal ideations. According to reports, he was transported to the emergency room by police after a fight with his mother. He looks very depressed, withdrawn with a flat affect. He states he stopped taking his medications for at least a month and a half because they made him feel sluggish. States he is not able to work on his current medications. He is not hearing voices and seeing things. He has been treated on the unit in the past and follows up at [facility] for outpatient care and carries previous diagnosis of major depressive disorder, cannabis dependence and borderline intellectual functioning. Review of Psychiatric Systems: Negative, except as above. Allergies: Coded Allergies: NO KNOWN DRUG ALLERGIES (Verified Allergy, Unknown, 11/21/13) Active Meds: Current Hospital Medications: Medications (Trade) Dose Ordered Sig/Gabriel Route PRN Reason Start Time Stop Time Status Last Admin Dose Admin Lorazepam (Ativan Tab) 0.5 mg Q4H PRN PO FOR MILD ANXIETY 06/17/15 11:15 Lorazepam (Ativan Tab) 1 mg Q4H PRN PO FOR MODERATE ANXIETY 06/17/15 11:15 Lorazepam (Ativan Tab) 2 mg Q4H PRN PO FOR SEVERE ANXIETY 06/17/15 11:15 Lorazepam (Ativan Inj) 2 mg Q4H PRN IM For Severe Aggression 06/17/15 11:15 Haloperidol Lactate (Haldol Inj) 5 mg Q4H PRN IM Severe Aggression 06/17/15 11:15 Diphenhydramine HCl (Benadryl Inj) 50 mg ONCE PRN IV Severe Extrapyramidal Symptoms 06/17/15 11:15 Benztropine Mesylate (Cogentin Tab) 1 mg BID PRN PO Mild Extrapyramidal symptoms 06/17/15 11:15 Benztropine Mesylate (Cogentin Inj) 1 mg ONCE PRN IM Severe Extrapyramidal Symptom 06/17/15 11:15 Acetaminophen (Tylenol Tab) 650 mg Q4H PRN PO FOR MILD PAIN 06/17/15 11:15 Trazodone HCl (Trazodone) 50 mg HS PRN PO FOR SLEEP 06/17/15 11:15 Nicotine (Nicoderm Patch) 21 mg DAILY PRN TD FOR WITHDRAWAL 06/17/15 11:15 Nicotine Polacrilex (Nicotine Gum) 2 mg Q2H PRN PO Withdrawal 06/17/15 11:15 Haloperidol (Haldol Tab) 5 mg Q4H PRN PO For agitation 06/17/15 11:15 Lorazepam (Ativan Tab) 2 mg Q4H PRN PO FOR AGITATION 06/17/15 11:15 Aripiprazole (Abilify Tab) 5 mg HS PO 06/18/15 22:00 Citalopram Hydrobromide (Celexa) 20 mg HS PO 06/18/15 22:00 Lisinopril (Prinivil) 20 mg DAILY PO 06/18/15 11:00 06/18/15 13:03 Home Meds: He was previously on Abilify, Celexa, trazodone and Topamax as well as lisinopril for blood pressure management. Past Medical History Past Medical/Social History: PAST PSYCHIATRIC HISTORY: As mentioned above. FAMILY PSYCHIATRIC HISTORY: father :alcoholic. There is no family history of suicide. SUBSTANCE USE HISTORY: History of marijuana use. PAST MEDICAL HISTORY: None reported. SOCIAL HISTORY: He was born in [place], [place], but raised in [place], [place]. His parents when he was very young and he moved around a lot as a child. He is single and has no children. He is a high school graduate and he currently works. He was in special education classes in school. He has never been in the . Hospital Course Hospital Course Servando presented to the emergency department reporting being off of his medic ation and having some suicidal thoughts. He also had active addiction with a positive UDS and blood alcohol level. He was admitted to the neuropsychiatric unit for definitive treatment of those issues. His BuSpar and Prozac were restarted and he slowly acclimated to the individual, group and milieu therapies provided. He showed modest improvement. He was able to contract for safety prior to discharge. During The hospitalization, the patient had routine laboratory studies which were within normal limits except for a few outliers. Additionally there was a general medical evaluation, which was also within normal limits revealed no processes. Discharge summary: At the time of discharge the patient was absent lethality, there was no psychosis reported or noted. Mood and anxiety were well managed. The patient endorsed the plan to avoid all drugs of abuse and follow-up with the recommendations of the treatment team. The patient was evaluated and deemed to be absent credible lethality, and had achieved the maximum benefit from an inpatient hospitalization, so he was discharged. Involuntary Hold Information 96 Hour Hold: 96 Hour Involuntary Admission: No 96 Hour Hold Ending Date: 03/02/20 96 Hour Hold Ending Time: 23:30 Mental Status Exam MSE Comments: This is an obese white male with hospital scrubs on, with limited grooming and eye contact. No abnormal movements except for significant psychomotor retardation. Cooperative with exam in moderate distress. Speech was more normal rate and volume. Mood described as better, affect flat. Thought process organized. Thought content: Patient denied suicidal or homicidal ideation, there were no delusions reported or noted, he denied any auditory or visual hallucinations. Attention and concentration appeared intact and memory was reliable and were formally tested. He is alert and oriented x3. Insight and judgment are improving, impulse control is impaired. Discharge Data Vitals: Last Vital Signs Temp 98.5 F 06/21/20 13:36 Pulse 95 06/21/20 13:36 Resp 18 06/21/20 13:36 BP 127/78 06/21/20 13:36 Pulse Ox 97 06/21/20 13:36 Discharge Plan Discharge Patient Disposition: Home Condition: Stable Prescriptions: Continued fluoxetine 20 mg Capsule 20 mg PO DAILY 30 Days Qty: 30 RF: 1 buspirone 15 mg Tablet 15 mg PO BID 30 Days Qty: 60 RF: 1 Discharge Orders: Discharge Order (Routine); Ordered 06/21/20 Ordered By: Aristeo Saldaña Referrals: [employer] [Other] (Please fill out and return application to [employer] as they do currently have funding for energy assistance.) [facility] Food Box hand out [Other] (Check every Sunday at 10AM to see if they will be handing out fruit and vegetable food boxes. Depending on if they get a ruck, they will be handing out boxes every Sunday at the [facility]. ) [facility] [Outside] - 1-3 days (call or stop by and request initial intake for outpatient mental health services) [facility] [Outside] - 1-3 days (If interested in continued treatment, call and request services. [facility] provides substance abuse treatment ) Discharge Diet: Usual diet and Regular Discharge Activity: Resume usual activity Discharge Attestations NPU Time Spent in Discharge Care*: less than 30 min Specific Discharge Activities: Specific discharge activities: educating patient, discussing with mental health case manager/social workers/dc planners, documenting/other paperwork and evaluating patient/reviewing data Coding Level of Care Code Acute Cold Food Packer for Johng Fwd Diagnoses Depression with suicidal ideation F32.9; R45.851 Intellectual disability F79 Alcohol use disorder Anxiety F41.9 Hypertension I10 Autism F84.0 Cannabis abuse F12.10
[2020-06-21 15:59] VITALS: BP 127/78; PULSE 95; RESP 18; TEMP 36.9; O2SAT 97
== END 2020-06-21 17:30 | disposition home or self-care (01) | DRG 880 ==
LOC: ER 22:54 → NP 23:39
PROVIDERS: Admitting Provider Psychiatry & Neurology Psychiatry; Emergency Provider Student in an Organized Health Care Education/Training Program; Visit Provider Psychiatry & Neurology Psychiatry
DX: F41.8 Other specified anxiety disorders (principal); R45.851 Suicidal ideations; F79 Unspecified intellectual disabilities; I10 Essential (primary) hypertension; F12.10 Cannabis abuse, uncomplicated; F10.20 Alcohol dependence, uncomplicated; F84.0 Autistic disorder; Y90.6 Blood alcohol level of 120-199 mg/100 ml
CPT/HCPCS: 12345; 80053; 80306; 80307; 85025; 99284

== ENCOUNTER 2021-03-31 16:39 | Inpatient (IN) | payer SELFPAY ==
[2021-03-31 16:45] VITALS: BP 147/97; PULSE 92; RESP 14; TEMP 37; O2SAT 98; BMI 32.5
--- NOTE | 2021-03-31 17:22 | W.ED.GENADLT ---
HPI - General Adult General: Chief complaint: Psychiatric Symptoms Stated complaint: SI Time Seen by Provider: 03/31/21 16:40 History of Present Illness: HPI narrative: HPI: [35]yo patient w/ hx of depression BIBA for acute suicidal ideation with plan of slitting his wrist until he bleeds to . On arrival, the patient is AAOx3 and cooperative with my evaluation. No focal complaints of chest pain, shortness of breath, palpitations, N/V, focal GI/ complaints. Denies HI. No complaints of hallucinations. Onset: chronic Duration: ongoing Location: home Severity: severe Review of Systems Narrative: Constitutional: No fever, no chills. HEENT: No vision changes CV: No chest pain, no palpitations PULM: No productive cough, no dyspnea. GI: No abdominal pain, no N/V/D. : No dysuria MSKEL: No muscle pain SKIN: No new rashes, no lesions. NEURO: No headache, no focal weakness. HEME: No visible bruises PSYCH: +Depressed affect, +suicidal ideation PFSH ED PFSH: Medical History (Updated 03/31/21 @ 17:27 by Sylvia Mejia MD) Hypertension Physical Exam Narrative: EXAM NARRATIVE: Head: Atraumatic Eyes: PERRL, conjunctiva without injection, eyes tracking ENT: Mucous membrane moist NECK: Supple without lymphadenopathy LUNGS: LCTAB CV: RRR ABDOMEN: Soft, nontender EXTREMITY: Normal ROM SKIN: No rash or erythema NEURO: Awake and alert. No focal weakness PSYCH: +Depressed affect Course Vital Signs: Vital signs: Vital Signs Temperature 97.9 F 04/01/21 20:45 Pulse Rate 108 H 04/01/21 20:45 Respiratory Rate 16 04/01/21 20:45 Blood Pressure 115/75 04/01/21 20:45 Pulse Oximetry 97 04/01/21 20:45 MDM - General Adult MDM Narrative: Medical decision making narrative: [35]yo patient w/ hx of depression, substance use presenting for suicidal ideation. HDS, exam within normal limit Thoughts are linear and organized, and the patient has no AH/VH, or HI. Clinically the patient displays no overt toxidrome; they are well appearing, with low suspicion for toxic ingestion given history and exam. Symptoms unlikely 2/2 anemia, hypothyroidism, infection, or ICH. Workup: CBC, CMP, Lipase, salicylate/tylenol Lab findings: wnl [6:15] On reassessment, labs and workup wnl. Patient is hemodynamically stable with no acute medical complaints. Case discussed with psychiatric provider Dr. Saldaña at [facility] psych inpatient with recommendation for admission Disposition: Psych Lab Data: Labs: Lab Results 03/31/21 03/31/21 03/31/21 19:06 19:06 19:44 WBC 12.0 10^3/uL H 10 ^3/uL (4.0-10.0) RBC 5.39 10^6/uL H 10 ^6/uL (4.1-5.3) Hgb 16.1 g/dL g/dL (11.7-16.6) Hct 47.2 % % (42.0-52.0) MCV 87.6 fl fl (80-94) MCH 29.9 pg pg (28.0-34.0) MCHC 34.1 g/dL g/dL (30.0-36.0) RDW 12.1 % % (12.1-15.1) Plt Count 329 10^3/cmm 10^3 /cmm (130-400) MPV 9.8 fL fL (7.4-10.4) Neut % (Auto) 61.2 % % Lymph % (Auto) 29.7 % % Austin % (Auto) 5.8 % % Eos % (Auto) 2.2 % % Baso % (Auto) 0.8 % % Neut # (Auto) 7.34 10^3/uL 10^3 /uL (1.8-7.7) Lymph # (Auto) 3.6 10^3/uL 10^3/ uL (0.8-4.8) Austin # (Auto) 0.7 10^3/uL 10^3/ uL (0.2-0.9) Eos # (Auto) 0.3 10^3/uL 10^3/ uL (0.0-0.8) Baso # (Auto) 0.1 10^3/uL 10^3/ uL (0.0-0.1) Nucleated RBC % (a uto) 0 % % Nucleated RBCs # 0.0 /100WBC /100W BC Sodium 137 mmol/L mmol/L (136-145) Potassium 3.9 mmol/L mmol/L (3.5-5.1) Chloride 101 mmol/L mmol/L (98-107) Carbon Dioxide 22 mmol/L mmol/L (22-29) Anion Gap 17.9 (5-19) BUN 11 mg/dL mg/dL (6-20) Creatinine 0.8 mg/dL mg/dL (0.7-1.2) GFR Calculation 110.7 mL/min mL/m in (90-130) Glucose 93 mg/dL mg/dL (65-115) Calculated Osmolal ity 283 mOsm/kg L mOs m/kg (285-295) Calcium 9.1 mg/dL mg/dL (8.5-10.5) Salicylates < 0.3 mg/dL L mg/ dL (3-10) Urine Opiates Scre en Negative ng/mL ng /mL (Negative) Acetaminophen < 5.0 ug/mL L ug/ mL (10-30) Ur Barbiturates Sc reen Negative ng/mL ng /mL (Negative) Ur Phencyclidine S crn Negative ng/mL ng /mL (Negative) Ur Amphetamines Sc reen Negative ng/mL ng /mL (Negative) U Benzodiazepines Scrn Negative ng/mL ng /mL (Negative) Urine Cocaine Scre en Negative ng/mL ng /mL (Negative) U Marijuana (THC) Screen Positive ng/mL H ng/mL (Negative) Discharge Plan Discharge Patient Disposition: Admitted As Inpatient Admit Provider: Aristeo Saldaña Clinical Impression: Suicidal ideations Condition: Stable Coding Level of Care Code ED Personal Development Mentor for Familia Rivera
--- NOTE | 2021-03-31 17:28 | PC.PHAR ---
pt states he takes no rx or otc medication-pt states he use to take buspar 15mg bid and prozac 20mg daily but states he hasnt taken in months ext med history shows last filled on 09/24/20 30d/s
[2021-03-31 19:22] LABS: Basophils # 0.1 10^3/uL (0.0-0.1); Basophils % 0.8 %; Eosinophils # 0.3 10^3/uL (0.0-0.8); Eosinophils % 2.2 %; Hematocrit 47.2 % (42.0-52.0); Hemoglobin 16.1 g/dL (11.7-16.6); Lymphocytes # 3.6 10^3/uL (0.8-4.8); Lymphocytes % 29.7 %; Mean Corpuscular HGB Conc 34.1 g/dL (30.0-36.0); Mean Corpuscular Hemoglobin 29.9 pg (28.0-34.0); Mean Corpuscular Volume 87.6 fl (80-94); Mean Platelet Volume 9.8 fL (7.4-10.4); Monocytes # 0.7 10^3/uL (0.2-0.9); Monocytes % 5.8 %; Neutrophils # 7.34 10^3/uL (1.8-7.7); Neutrophils % 61.2 %; Nucleated Red Blood Cells % 0 %; Platelet Count 329 10^3/cmm (130-400); Red Blood Count 5.39 10^6/uL (4.1-5.3); Red Cell Distribution Width 12.1 % (12.1-15.1)
[2021-03-31 19:41] LABS: Acetaminophen < 5.0 ug/mL (10-30); Anion Gap 17.9 (5-19); Blood Urea Nitrogen 11 mg/dL (6-20); Calcium 9.1 mg/dL (8.5-10.5); Carbon Dioxide 22 mmol/L (22-29); Chloride 101 mmol/L (98-107); Creatinine Clr Calc Pharmacy 151.5211; Glomerular Filtration Rate 110.7 mL/min (90-130); Glucose 93 mg/dL (65-115); Osmolality Calculated 283 mOsm/kg (285-295); Potassium 3.9 mmol/L (3.5-5.1); Salicylate < 0.3 mg/dL (3-10); Sodium 137 mmol/L (136-145)
[2021-03-31 20:17] LABS: Amphetamines Screen Urine Negative (Negative); Barbiturates Screen Urine Negative (Negative); Benzodiazepines Screen Urine Negative (Negative); Cocaine Screen Urine Negative (Negative); Opiate Screen Urine Negative (Negative); PCP Screen Urine Negative (Negative); THC Screen Urine Positive (Negative)
[2021-03-31 21:05] VITALS: BP 138/98; PULSE 62; RESP 18; TEMP 36.6; O2SAT 99
[2021-03-31 22:00] VITALS: BP 138/98; PULSE 62; RESP 18; TEMP 36.6
[2021-03-31] MEDS: hyDROXYzine 25 mg Capsule 50 MG PO (22:17)
[2021-03-31] MEDS: trazodone 50 mg Tablet PO (22:18)
--- NOTE | 2021-03-31 22:20 | PC.NURSE ---
Patient requested medication for sleep and anxiety. Trazodone 50mg PO ; Vistaril 50 mo PO given
--- NOTE | 2021-03-31 23:17 | PC.NURSE ---
35/M SI...Voluntary from ED... +THC Pt last on unit 03/02/21, Pt states, I am depressed and feel hopeless. It is like I take a step forward and two steps back. I can't get ahead in life. I have been this way all my life. No medications have ever helped me before. I was last on this unit about 4 months ago and got medication that never really helped me, so I did not continue it. Pt is requesting medication to help mood stabilization. He is single, no children, lives in his own mobile home that he is not financially able to pay for at this time, this is increasing his depression. Pt admits to smoking marijuana nightly after work to wind down.
[2021-04-01 06:00] VITALS: BP 138/98; PULSE 62; RESP 18; TEMP 36.6
--- NOTE | 2021-04-01 08:30 | P.HP_ITS ---
Providers/Chief Complaint Admitting Physician: Aristeo Saldaña MD Chief Complaint: SI HPI NPU History of Present Illness Servando Merino is a 35 year old male who presented to the emergency department with the following report: Chief complaint: Psychiatric Symptoms Stated complaint: SI Time Seen by Provider: 03/31/21 16:40 History of Present Illness: HPI narrative: HPI: [35]yo patient w/ hx of depression BIBA for acute suicidal ideation with plan of slitting his wrist until he bleeds to . On arrival, the patient is AAOx3 and cooperative with my evaluation. No focal complaints of chest pain, shortness of breath, palpitations, N/V, focal GI/ complaints. Denies HI. No complaints of hallucinations. Onset: chronic Duration: ongoing Location: home Severity: severe He was admitted to the neuropsychiatric unit for definitive treatment of those issues. He presents today, known to this residential mortgage underwriter, from multiple past inpatient visits, the last of which was 06-18-20. An excerpt of that evaluation is included below for context, and he denies significant changes in general. He presents today reporting that he had not been taking the medication that was prescribed to him last year for some time, primarily because he endorses it being ineffective. He reports that he was either on Prozac and Buspar, or Lexapro and Buspar, but he reports it had been mostly ineffective and he discontinued it. He reports that he had an increase in his anxiety and depression, started having suicidal thoughts, he had not been feeling great, and anxiety worse. He reports he has been working at [employer], but there have been no major changes otherwise. The depression got so significant, and anxiety was worsening, and he needed to get some help. We discussed the risks, benefits, and alternatives of initiating Wellbutrin XL 150 mg po qam, and he understood and agreed to proceed as is documented in this note. Per his 06/18/2020 [facility] inpatient psychiatric evaluation: History of Present Illness Servando Merino is a 35 year old male who presented to the emergency department with the following report: Chief Complaint: Psychiatric Symptoms Stated Complaint: MHE Time Seen by Provider: 06/17/20 21:24 Source: patient History of Present Illness: HPI Narrative: Patient is a 35-year-old male seen for suicidal ideation. He arrives escorted by local law enforcement as he made remarks to them that he wished he could . In conversation with him, he relates that he is down on his luck, has difficulty paying his bills, and recently received another garnish to his wages. He does not have medical insurance and states that he has had suicidal ideation in the past, with 4 specific events he remembers. He states that he supposed to be on medicine but does not have money for it. He states that if he had a gun, he would shoot himself in the head. He denies fever, cough, chest pain, shortness of breath, and has no other acute complaints. He was admitted to the neuropsychiatric unit for treatment of those issues. Servando presents today in an almost d?j? vu of his last visit in office. He presents with suicidal ideation which had a nidus related to finances and limited resources. He had a positive BAL and this time also had a positive UDS for cannabis. He reports that he was taking his medication initially then he feels like it stopped being as helpful. We discussed the fact that with the medications the purpose of follow-up is that sometimes they need to be increased. There is no sign that he followed up at [facility]. He was fairly subdued and isolative to his room and in bed. He answered questions but was not forthcoming with additional information if not specifically asked. Outside of the recent challenges he denied any substantive changes to his psychosocial history. We reviewed his most recent [facility] inpatient evaluation and an excerpt is included below. Per his 02/26/2020 [facility] inpatient eval: History of Present Illness Servando Merino is a 34 year old male who presented to the emergency room reporting that he was extremely depressed and suicidal, feels like the world is coming in on him. He reportedly had a flat affect, and he was a poor historian reportedly. He reported he was supposed to be on medication but was not taking any. He endorsed suicidal ideation. He was noted to have a blood alcohol level of 136. He was admitted to the neuropsychiatric unit for definitive treatment of those issues. He presented to the neuropsychiatric unit as a fairly poor historian, very guarded, and struggled to even turn and face this residential mortgage underwriter. He reports that he had been off his medication for an unknown period of time. Servando had reportedly gone to the emergency room earlier in the month with an episode where his mother was angry with him for leaving trash in her vehicle after which he posted on social media that he was going to kill himself, though he denied suicidal ideation when he was in the emergency room. He was brought in for evaluation where he acknowledged that he was feeling angry at the time and did post that but denied any issues like that. He denied that he would ever follow through on that. The case was discussed with Dr. Owens and he was evaluated and encouraged to follow-up with [facility] where he had a rifle case repairer. There was a call after that by Bessie mother, very angry that he was not admitted but he had no problems or concerns reportedly after that. He is unable to articulate to me how often he drinks, how long he has been off the medication, when was the last time he was followed with regularity. His mother has had multiple calls with concerns about his drinking and things of that nature. He really had no conversation for that either. We reviewed his history given his limited ability to provide a clear history. His last inpatient hospitalization was in June of 2015 and we reviewed that document, which he reports was a fairly accurate depiction of his history. We also reviewed an excerpt of that note which is included below. We also reviewed one of his earliest hospitalizations which was at [facility] which was in March of 2012, and we discussed the fact that at that time he had just been placed on a 96-hour hold after he had been drinking and got pulled over by the [facility] police. He had been picked up for DWI and he was really freaking out because he was afraid that he was going to lose his job. He had some self-injurious behavior at the time that he was later embarrassed. He presented with an elevated blood alcohol level and was denying any significant alcohol problem at that time when he was working at [employer]. He identifies that he has some intellectual limitations, as he was in special education classes at school. There has been a discussion that he has held diagnoses of major depressive disorder, cannabis use disorder, and there have been questions of whether or not he meets the criteria for autism spectrum disorder which they refer to as Asperger?s. Currently he endorses a desire to i nitiate medication. We discussed briefly, the medication that he had been on. He was not sure and wanted me to check. We agreed to look into the possibility of starting Prozac 20 mg po qam and Buspar 15 mg po bid after discussing the risks, benefits, and alternatives. He agreed to consider starting these in the morning. There is depression and anxiety. Per his last [facility] eval: History of Present Illness Date of Service: Jun 18, 2015 Chief Complaint: Suicidal ideations HPI: The patient was admitted from the emergency room due to suicidal ideations. According to reports, he was transported to the emergency room by police after a fight with his mother. He looks very depressed, withdrawn with a flat affect. He states he stopped taking his medications for at least a month and a half because they made him feel sluggish. States he is not able to work on his current medications. He is not hearing voices and seeing things. He has been treated on the unit in the past and follows up at [facility] for outpatient care and carries previous diagnosis of major depressive disorder, cannabis dependence and borderline intellectual functioning. Review of Psychiatric Systems: Negative, except as above. Allergies: Coded Allergies: NO KNOWN DRUG ALLERGIES (Verified Allergy, Unknown, 11/21/13) Active Meds: Current Hospital Medications: Medications (Trade) Dose Ordered Sig/Gabriel Route PRN Reason Start Time Stop Time Status Last Admin Dose Admin Lorazepam (Ativan Tab) 0.5 mg Q4H PRN PO FOR MILD ANXIETY 06/17/15 11:15 Lorazepam (Ativan Tab) 1 mg Q4H PRN PO FOR MODERATE ANXIETY 06/17/15 11:15 Lorazepam (Ativan Tab) 2 mg Q4H PRN PO FOR SEVERE ANXIETY 06/17/15 11:15 Lorazepam (Ativan Inj) 2 mg Q4H PRN IM For Severe Aggression 06/17/15 11:15 Haloperidol Lactate (Haldol Inj) 5 mg Q4H PRN IM Severe Aggression 06/17/15 11:15 Diphenhydramine HCl (Benadryl Inj) 50 mg ONCE PRN IV Severe Extrapyramidal Symptoms 06/17/15 11:15 Benztropine Mesylate (Cogentin Tab) 1 mg BID PRN PO Mild Extrapyramidal symptoms 06/17/15 11:15 Benztropine Mesylate (Cogentin Inj) 1 mg ONCE PRN IM Severe Extrapyramidal Symptom 06/17/15 11:15 Acetaminophen (Tylenol Tab) 650 mg Q4H PRN PO FOR MILD PAIN 06/17/15 11:15 Trazodone HCl (Trazodone) 50 mg HS PRN PO FOR SLEEP 06/17/15 11:15 Nicotine (Nicoderm Patch) 21 mg DAILY PRN TD FOR WITHDRAWAL 06/17/15 11:15 Nicotine Polacrilex (Nicotine Gum) 2 mg Q2H PRN PO Withdrawal 06/17/15 11:15 Haloperidol (Haldol Tab) 5 mg Q4H PRN PO For agitation 06/17/15 11:15 Lorazepam (Ativan Tab) 2 mg Q4H PRN PO FOR AGITATION 06/17/15 11:15 Aripiprazole (Abilify Tab) 5 mg HS PO 06/18/15 22:00 Citalopram Hydrobromide (Celexa) 20 mg HS PO 06/18/15 22:00 Lisinopril (Prinivil) 20 mg DAILY PO 06/18/15 11:00 06/18/15 13:03 Home Meds: He was previously on Abilify, Celexa, trazodone and Topamax as well as lisinopril for blood pressure management. Past Medical History Past Medical/Social History: PAST PSYCHIATRIC HISTORY: As mentioned above. FAMILY PSYCHIATRIC HISTORY: father :alcoholic. There is no family history of suicide. SUBSTANCE USE HISTORY: History of marijuana use. PAST MEDICAL HISTORY: None reported. SOCIAL HISTORY: He was born in [place], [place], but raised in [place], [place]. His parents when he was very young and he moved around a lot as a child. He is single and has no children. He is a high school graduate and he currently works. He was in special education classes in school. He has never been in the . Physical Exam Vital Signs: Vital Signs: Date Time Temp Pulse Resp B/P Pulse Ox O2 Delivery O2 Flow Rate FiO2 06/18/15 06:22 98.4 90 18 131/88 96 06/17/15 13:31 Room Air Physical Exam: HEENT: Normal to inspection. NECK: Supple. CARDIOVASCULAR: S1 and S2 normal. CHEST: Clear. ABDOMEN: Soft. Nontender. NEUROLOGIC: No obvious deficits. EXTREMITIES: Normal to inspection. Review of systems: A fourteen-point Review of Systems is done, but is negative except as above. MENTAL STATUS EXAMINATION: In addition to what is mentioned above, The patient is alert and oriented. Speech is normal in rate, volume and tone. Patient describes mood as depressed. Affect is depressed. Insight and judgment are fair/poor. On cognitive examination, the patient appears cognitively limited: No, as evidenced by use of language and language comprehension. Data Result Diagram: 06/17/154906/17/1549 document embedded image Impression AXIS I: Major depressive disorder, severe without psychotic features; cannabis use disorder. AXIS II: Borderline intellectual functioning AXIS III: None AXIS IV: Work related problems. AXIS V: Global Assessment of Function: 25. Meds NPU Home Medications Medication Instructions Recorded Confirmed Last Taken Type No Known Home Medications 03/31/21 03/31/21 Unknown History Allergies Allergy/AdvReac Type Severity Reaction Status Date / Time No Known Allergies Allergy Verified 03/31/21 17:28 PFSH NPU PFSH: Medical History (Updated 03/31/21 @ 17:27 by Sylvia Mejia MD) Hypertension Mental Status Exam MSE Comments: This is an obese, white male, in hospital scrubs, with limited grooming, and eye contact. No abnormal movements except for psychomotor retardation. Cooperative with exam in no mild to moderate distress. Speech was decreased rate and volume. Mood described as depressed; affect congruent. Thought process, organized. Thought content: patient denied any suicidal or homicidal ideation, there were no delusions reported or noted, patient denied any auditory or visual hallucinations. Attention, concentration, and memory appear intact but were not formally tested. He is alert and oriented times three. Insight and judgment are fair, impulse control limited. Vitals/I&O/Wt Last Vital Signs Temp 97.9 F 04/01/21 06:00 Pulse 62 04/01/21 06:00 Resp 18 04/01/21 06:00 BP 138/98 04/01/21 06:00 Pulse Ox 99 03/31/21 21:05 Weight last 48 hrs Weight 99.79 kg Data NPU : 03/31/21 19:06 03/31/21 19:06 A&P Assessment and plan (1) Suicidal ideations: Status: Acute (2) Cannabis abuse: Status: Acute (3) Autism: Status: Acute (4) Intellectual disability: Status: Acute (5) Alcohol use disorder: Status: Acute (6) Anxiety: Status: Acute (7) Depression: Status: Acute (8) Hypertension: Status: Acute Additional A&P Information This is a 35-year-old, white male, with a long history of depression and anxiety, as well as a past history of cannabis use and borderline intellectual functioning, who presents off of medication but open to restarting medication. RECOMMENDATION AND PLAN: 1. Continue current medication except: 2. Start Wellbutrin XL 150 mg po qam. 3. Encourage individual, group, and milieu therapy. 4. Continue q-15 minute checks for safety. 5. Encourage sober living treatment after discharge, at the highest level of care, to which he is willing to commit. Involuntary Hold Information 2 96 Hour Hold: 96 Hour Involuntary Admission: No Attestations NPU Medical Necessity Statement*: Inpatient hospitalization is medically necessary and the clinically appropriate intervention, at this time. We will monitor medications and make changes as indicated. Patient will be in the hospital for over two midnights. Likely length of stay is 2-4 days. Coding Level of Care Code Acute Clerk General Office for Familia Fwd Diagnoses Suicidal ideations R45.851 Cannabis abuse F12.10 Autism F84.0 Intellectual disability F79 Alcohol use disorder Anxiety F41.9 Depression F32.9 Hypertension I10
[2021-04-01 14:00] VITALS: BP 107/69; PULSE 82; RESP 16; TEMP 37.1; O2SAT 97
[2021-04-01] MEDS: buPROPion XL (24 HR) 150 mg Tablet PO (14:24)
[2021-04-01 20:45] VITALS: BP 115/75; PULSE 108; RESP 16; TEMP 36.6; O2SAT 97
[2021-04-02 06:00] VITALS: BP 115/75; PULSE 108; RESP 16; TEMP 36.6; O2SAT 97
--- NOTE | 2021-04-02 06:09 | PC.NURSE ---
PRNs 50mg po trazodone given for sleep onset, was effective, pt slept all night Visteril 50mg PO was given to reduce anxiety. pt rested
--- NOTE | 2021-04-02 08:34 | P.PN_ITS ---
Subjective NPU Subjective: Interval history: Patient was in today reporting that he feels he is doing a little better with the Wellbutrin. We had a fairly lengthy discussion about his plans to move forward. He still working at the [employer] and has to be back to work at the beginning of the week. He does however have a court date on Sunday at [facility] at 9 AM. We discussed the risk benefits and alternatives of discharging him Sunday morning that he continues to have appropriate progress. Mental Status Exam MSE Comments: This is an obese, white male, in hospital scrubs, with limited grooming, and eye contact. No abnormal movements except for psychomotor retardation. Cooperative with exam in mild distress. Speech was decreased rate and volume. Mood described as a little better; affect congruent. Thought process, organized. Thought content: patient denied any suicidal or homicidal ideation, there were no delusions reported or noted, patient denied any auditory or visual hallucinations. Attention, concentration, and memory appear intact but were not formally tested. He is alert and oriented times three. Insight and judgment are fair, impulse control limited. Vitals/I&O/Wt Last Vital Signs Temp 97.9 F 04/02/21 06:00 Pulse 108 H 04/02/21 06:00 Resp 16 04/02/21 06:00 BP 115/75 04/02/21 06:00 Pulse Ox 97 04/02/21 06:00 Weight last 48 hrs Weight 99.79 kg Data NPU : 03/31/21 19:06 03/31/21 19:06 A&P Additional A&P Information (1) Suicidal ideations: (2) Cannabis abuse: (3) Autism: (4) Intellectual disability: (5) Alcohol use disorder: (6) Anxiety: (7) Depression: (8) Hypertension: This is a 35-year-old, white male, with a long history of depression and anxiety, as well as a past history of cannabis use and borderline intellectual functioning, who presents off of medication but open to restarting medication. RECOMMENDATION AND PLAN: 1. Continue current medication except: 2. Start Wellbutrin XL 150 mg po qam. 3. Encourage individual, group, and milieu therapy. 4. Continue q-15 minute checks for safety. 5. Encourage sober living treatment after discharge, at the highest level of care, to which he is willing to commit. Involuntary Hold Information 96 Hour Hold: 96 Hour Involuntary Admission: No Attestations NPU Medical Necessity Statement*: Inpatient hospitalization is medically necessary and the clinically appropriate intervention, at this time. We will monitor medications and make changes as indicated. Likely length of stay is 1-3 days. Coding Level of Care Code Acute Director Of Cardiac Rehabilitation for Familia Rivera
[2021-04-02] MEDS: buPROPion XL (24 HR) 150 mg Tablet PO (10:00)
[2021-04-02 14:00] VITALS: BP 129/86; PULSE 88; RESP 20; TEMP 36.7; O2SAT 99
[2021-04-02 20:56] VITALS: BP 123/83; PULSE 88; RESP 20; TEMP 36.7; O2SAT 96
[2021-04-02] MEDS: hyDROXYzine 25 mg Capsule 50 MG PO (21:25)
[2021-04-02] MEDS: trazodone 50 mg Tablet PO (21:25)
[2021-04-03 06:00] VITALS: BP 112/72; PULSE 98; RESP 18; TEMP 36.8; O2SAT 99
[2021-04-03] MEDS: buPROPion XL (24 HR) 150 mg Tablet PO (08:25)
--- NOTE | 2021-04-03 08:25 | P.PN_ITS ---
Subjective NPU Subjective: Interval history: He presents today reporting that he is doing better with the medication and happy that he came in and made the change. Now his concern is turned to the fact that he reports that he has a hearing tomorrow at 9:00 that he needs to be at at the [facility]. We discussed him not having insurance and needing assistance with medication so we agreed we would send it to our pharmacy and he might be able to get it before he discharges we may have to pick it up after the court hearing. I explained that I would get him discharged in time to get to the appointment. Mental Status Exam MSE Comments: This is an obese, white male, in hospital scrubs, with adequate grooming, and eye contact. No abnormal movements except for mild psychomotor retardation. Cooperative with exam in no acute distress. Speech was decreased rate and volume. Mood described as better; affect congruent. Thought process, organized. Thought content: patient denied any suicidal or homicidal ideation, there were no delusions reported or noted, patient denied any auditory or visual hallucinations. Attention, concentration, and memory appear intact but were not formally tested. He is alert and oriented times three. Insight and judgment are fair, impulse control limited, but improving. Vitals/I&O/Wt Last Vital Signs Temp 98.2 F 04/03/21 06:00 Pulse 98 04/03/21 06:00 Resp 18 04/03/21 06:00 BP 112/72 04/03/21 06:00 Pulse Ox 99 04/03/21 06:00 Weight last 48 hrs Weight 95.254 kg Data NPU : 03/31/21 19:06 03/31/21 19:06 A&P Additional A&P Information (1) Suicidal ideations: (2) Cannabis abuse: (3) Autism: (4) Intellectual disability: (5) Alcohol use disorder: (6) Anxiety: (7) Depression: (8) Hypertension: This is a 35-year-old, white male, with a long history of depression and anxiety, as well as a past history of cannabis use and borderline intellectual functioning, who presents off of medication but open to restarting medication. RECOMMENDATION AND PLAN: 1. Continue current medication except: 2. Encourage individual, group, and milieu therapy. 3. Continue q-15 minute checks for safety. 4. Encourage sober living treatment after discharge, at the highest level of care, to which he is willing to commit. Involuntary Hold Information 96 Hour Hold: 96 Hour Involuntary Admission: No Attestations NPU Medical Necessity Statement*: Inpatient hospitalization is medically necessary and the clinically appropriate intervention, at this time. We will monitor medications and make changes as indicated. Likely length of stay is 1-2 days. Coding Level of Care Code Acute Workers Compensation Claims Examiner for Familia Rivera
[2021-04-03 14:00] VITALS: BP 96/59; PULSE 94; RESP 16; TEMP 36.8; O2SAT 97
[2021-04-03 20:07] VITALS: BP 117/78; PULSE 85; RESP 18; TEMP 36.6; O2SAT 94
[2021-04-03] MEDS: hyDROXYzine 25 mg Capsule 50 MG PO (22:02)
[2021-04-03] MEDS: trazodone 50 mg Tablet PO (22:03)
--- NOTE | 2021-04-03 22:05 | PC.NURSE ---
pt requested sleep and anxiety meds. trazodone 50mg for sleep and vistaril 50mg po for anxiety given.
--- NOTE | 2021-04-03 23:00 | PC.NURSE ---
pt resting quietly with both eyes closed.
[2021-04-04 06:00] VITALS: BP 114/74; PULSE 97; RESP 20; TEMP 36.6; O2SAT 97
[2021-04-04] MEDS: buPROPion XL (24 HR) 150 mg Tablet PO (08:36)
--- NOTE | 2021-04-04 08:43 | P.DS_ITS ---
Diagnoses at Discharge Discharge Diagnosis (1) Suicidal ideations: Status: Resolved (2) Cannabis abuse: Status: Acute (3) Autism: Status: Acute (4) Intellectual disability: Status: Acute (5) Alcohol use disorder: Status: Acute (6) Anxiety: Status: Acute (7) Depression: Status: Acute (8) Hypertension: Status: Acute Reason for Visit Reason for Visit: SI Brief History: History of Present Illness Servando Merino is a 35 year old male who presented to the emergency department with the following report: Chief complaint: Psychiatric Symptoms Stated complaint: SI Time Seen by Provider: 03/31/21 16:40 History of Present Illness: HPI narrative: HPI: [35]yo patient w/ hx of depression BIBA for acute suicidal ideation with plan of slitting his wrist until he bleeds to . On arrival, the patient is AAOx3 and cooperative with my evaluation. No focal complaints of chest pain, shortness of breath, palpitations, N/V, focal GI/ complaints. Denies HI. No complaints of hallucinations. Onset: chronic Duration: ongoing Location: home Severity: severe He was admitted to the neuropsychiatric unit for definitive treatment of those issues. He presents today, known to this instructional writer, from multiple past inpatient visits, the last of which was 06-18-20. An excerpt of that evaluation is included below for context, and he denies significant changes in general. He presents today reporting that he had not been taking the medication that was prescribed to him last year for some time, primarily because he endorses it being ineffective. He reports that he was either on Prozac and Buspar, or Lexapro and Buspar, but he reports it had been mostly ineffective and he discontinued it. He reports that he had an increase in his anxiety and depression, started having suicidal thoughts, he had not been feeling great, and anxiety worse. He reports he has been working at [employer], but there have been no major changes otherwise. The depression got so significant, and anxiety was worsening, and he needed to get some help. We discussed the risks, benefits, and alternatives of initiating Wellbutrin XL 150 mg po qam, and he understood and agreed to proceed as is documented in this note. Per his 06/18/2020 [facility] inpatient psychiatric evaluation: History of Present Illness Servando Merino is a 35 year old male who presented to the emergency department with the following report: Chief Complaint: Psychiatric Symptoms Stated Complaint: MHE Time Seen by Provider: 06/17/20 21:24 Source: patient History of Present Illness: HPI Narrative: Patient is a 35-year-old male seen for suicidal ideation. He arrives escorted by local law enforcement as he made remarks to them that he wished he could . In conversation with him, he relates that he is down on his luck, has difficulty paying his bills, and recently received another garnish to his wages. He does not have medical ins urance and states that he has had suicidal ideation in the past, with 4 specific events he remembers. He states that he supposed to be on medicine but does not have money for it. He states that if he had a gun, he would shoot himself in the head. He denies fever, cough, chest pain, shortness of breath, and has no other acute complaints. He was admitted to the neuropsychiatric unit for treatment of those issues. Servando presents today in an almost d?j? vu of his last visit in office. He presents with suicidal ideation which had a nidus related to finances and limited resources. He had a positive BAL and this time also had a positive UDS for cannabis. He reports that he was taking his medication initially then he feels like it stopped being as helpful. We discussed the fact that with the medications the purpose of follow-up is that sometimes they need to be increased. There is no sign that he followed up at [facility]. He was fairly subdued and isolative to his room and in bed. He answered questions but was not forthcoming with additional information if not specifically asked. Outside of the recent challenges he denied any substantive changes to his psychosocial history. We reviewed his most recent [facility] inpatient evaluation and an excerpt is included below. Per his 02/26/2020 [facility] inpatient eval: History of Present Illness Servando Merino is a 34 year old male who presented to the emergency room reporting that he was extremely depressed and suicidal, feels like the world is coming in on him. He reportedly had a flat affect, and he was a poor historian reportedly. He reported he was supposed to be on medication but was not taking any. He endorsed suicidal ideation. He was noted to have a blood alcohol level of 136. He was admitted to the neuropsychiatric unit for definitive treatment of those issues. He presented to the neuropsychiatric unit as a fairly poor historian, very guarded, and struggled to even turn and face this instructional writer. He reports that he had been off his medication for an unknown period of time. Servando had reportedly gone to the emergency room earlier in the month with an episode where his mother was angry with him for leaving trash in her vehicle after which he posted on social media that he was going to kill himself, though he denied suicidal ideation when he was in the emergency room. He was brought in for evaluation where he acknowledged that he was feeling angry at the time and did post that but denied any issues like that. He denied that he would ever follow through on that. The case was discussed with Dr. Owens and he was evaluated and encouraged to follow-up with [facility] where he had a rehabilitation case coordinator. There was a call after that by Servando? mother, very angry that he was not admitted but he had no problems or concerns reportedly after that. He is unable to articulate to me how often he drinks, how long he has been off the medication, when was the last time he was followed with regularity. His mother has had multiple calls with concerns about his drinking and things of that nature. He really had no conversation for that either. We reviewed his history given his limited ability to provide a clear history. His last inpatient hospitalization was in June of 2015 and we reviewed that document, which he reports was a fairly accurate depiction of his history. We also reviewed an excerpt of that note which is included below. We also reviewed one of his earliest hospitalizations which was at [facility] which was in March of 2012, and we discussed the fact that at that time he had just been placed on a 96-hour hold after he had been drinking and got pulled over by the [facility] police. He had been picked up for DWI and he was really freaking out because he was afraid that he was going to lose his job. He had some self-injurious behavior at the time that he was later embarrassed. He presented with an elevated blood alcohol level and was denying any significant alcohol problem at that time when he was working at [employer]. He identifies that he has some intellectual limitations, as he was in special education classes at school. There has been a discussion that he has held diagnoses of major depressive disorder, cannabis use disorder, and there have been questions of whether or not he meets the criteria for autism spectrum disorder which they refer to as Asperger?s. Currently he endorses a desire to initiate medication. We discussed briefly, the medication that he had been on. He was not sure and wanted me to check. We agreed to look into the possibility of starting Prozac 20 mg po qam and Buspar 15 mg po bid after discussing the risks, benefits, and alternatives. He agreed to consider starting these in the morning. There is depression and anxiety. Per his last [facility] eval: History of Present Illness Date of Service: Jun 18, 2015 Chief Complaint: Suicidal ideations HPI: The patient was admitted from the emergency room due to suicidal ideations. According to reports, he was transported to the emergency room by police after a fight with his mother. He looks very depressed, withdrawn with a flat affect. He states he stopped taking his medications for at least a month and a half because they made him feel sluggish. States he is not able to work on his current medications. He is not hearing voices and seeing things. He has been treated on the unit in the past and follows up at [facility] for outpatient care and carries previous diagnosis of major depressive disorder, cannabis dependence and borderline intellectual functioning. Review of Psychiatric Systems: Negative, except as above. Allergies: Coded Allergies: NO KNOWN DRUG ALLERGIES (Verified Allergy, Unknown, 11/21/13) Active Meds: Current Hospital Medications: Medications (Trade) Dose Ordered Sig/Gabriel Route PRN Reason Start Time Stop Time Status Last Admin Dose Admin Lorazepam (Ativan Tab) 0.5 mg Q4H PRN PO FOR MILD ANXIETY 06/17/15 11:15 Lorazepam (Ativan Tab) 1 mg Q4H PRN PO FOR MODERATE ANXIETY 06/17/15 11:15 Lorazepam (Ativan Tab) 2 mg Q4H PRN PO FOR SEVERE ANXIETY 06/17/15 11:15 Lorazepam (Ativan Inj) 2 mg Q4H PRN IM For Severe Aggression 06/17/15 11:15 Haloperidol Lactate (Haldol Inj) 5 mg Q4H PRN IM Severe Aggression 06/17/15 11:15 Diphenhydramine HCl (Benadryl Inj) 50 mg ONCE PRN IV Severe Extrapyramidal Symptoms 06/17/15 11:15 Benztropine Mesylate (Cogentin Tab) 1 mg BID PRN PO Mild Extrapyramidal symptoms 06/17/15 11:15 Benztropine Mesylate (Cogentin Inj) 1 mg ONCE PRN IM Severe Extrapyramidal Symptom 06/17/15 11:15 Acetaminophen (Tylenol Tab) 650 mg Q4H PRN PO FOR MILD PAIN 06/17/15 11:15 Trazodone HCl (Trazodone) 50 mg HS PRN PO FOR SLEEP 06/17/15 11:15 Nicotine (Nicoderm Patch) 21 mg DAILY PRN TD FOR WITHDRAWAL 06/17/15 11:15 Nicotine Polacrilex (Nicotine Gum) 2 mg Q2H PRN PO Withdrawal 06/17/15 11:15 Haloperidol (Haldol Tab) 5 mg Q4H PRN PO For agitation 06/17/15 11:15 Lorazepam (Ativan Tab) 2 mg Q4H PRN PO FOR AGITATION 06/17/15 11:15 Aripiprazole (Abilify Tab) 5 mg HS PO 06/18/15 22:00 Citalopram Hydrobromide (Celexa) 20 mg HS PO 06/18/15 22:00 Lisinopril (Prinivil) 20 mg DAILY PO 06/18/15 11:00 06/18/15 13:03 Home Meds: He was previously on Abilify, Celexa, trazodone and Topamax as well as lisinopril for blood pressure management. Past Medical History Past Medical/Social History: PAST PSYCHIATRIC HISTORY: As mentioned above. FAMILY PSYCHIATRIC HISTORY: father :alcoholic. There is no family history of suicide. SUBSTANCE USE HISTORY: History of marijuana use. PAST MEDICAL HISTORY: None reported. SOCIAL HISTORY: He was born in [place], [place], but raised in [place], [place]. His parents when he was very young and he moved around a lot as a child. He is single and has no children. He is a high school graduate and he currently works. He was in special education classes in school. He has never been in the . Physical Exam Vital Signs: Vital Signs: Date Time Temp Pulse Resp B/P Pulse Ox O2 Delivery O2 Flow Rate FiO2 06/18/15 06:22 98.4 90 18 131/88 96 06/17/15 13:31 Room Air Physical Exam: HEENT: Normal to inspection. NECK: Supple. CARDIOVASCULAR: S1 and S2 normal. CHEST: Clear. ABDOMEN: Soft. Nontender. NEUROLOGIC: No obvious deficits. EXTREMITIES: Normal to inspection. Review of systems: A fourteen-point Review of Systems is done, but is negative except as above. MENTAL STATUS EXAMINATION: In addition to what is mentioned above, The patient is alert and oriented. Speech is normal in rate, volume and tone. Patient describes mood as depressed. Affect is depressed. Insight and judgment are fair/poor. On cognitive examination, the patient appears cognitively limited: No, as evidenced by use of language and language comprehension. Data Result Diagram: 06/17/154906/17/1549 document embedded image Impression AXIS I: Major depressive disorder, severe without psychotic features; cannabis use disorder. AXIS II: Borderline intellectual functioning AXIS III: None AXIS IV: Work related problems. AXIS V: Global Assessment of Function: 25. Hospital Course Hospital Course He slowly acclimated to the individual, group and milieu therapies provided. We monitored him and restarted medications. Wellbutrin, trazodone and Vistaril were given with the Wellbutrin being a standing medication. He showed modest improvement. He was able to contract for safety prior to discharge. During the hospitalization, he had routine laboratory studies which were within normal limits except for a few outliers. Additionally, he had a general medical evaluation which was also within normal limits and revealed no acute processes. At the time of discharge, he denied psychosis or lethality. His mood and anxiety were well managed and he agreed to avoid all drugs of abuse and follow- up with the aftercare recommendations of the treatment team. He was evaluated, and deemed to be absent credible lethality. He had achieved a maximal benefit from an inpatient hospitalization, so he was discharged. Involuntary Hold Information 96 Hour Hold: 96 Hour Involuntary Admission: No Mental Status Exam MSE Comments: `This is an obese, white male, in hospital scrubs, with adequate grooming, and eye contact. No abnormal movements except for mild psychomotor retardation. Cooperative with exam in no acute distress. Speech was decreased rate and volume. Mood described as better; affect congruent. Thought process, organized. Thought content: patient denied any suicidal or homicidal ideation, there were no delusions reported or noted, patient denied any auditory or visual hallucinations. Attention, concentration, and memory appear intact but were not formally tested. He is alert and oriented times three. Insight and judgment are fair, impulse control limited, but improving. Discharge Data Vitals: Last Vital Signs Temp 98 F 04/04/21 06:00 Pulse 97 04/04/21 06:00 Resp 20 H 04/04/21 06:00 BP 114/74 04/04/21 06:00 Pulse Ox 97 04/04/21 06:00 Discharge Plan Discharge Patient Disposition: Home Condition: Stable Prescriptions: New trazodone 50 mg Tablet 50 mg PO BEDTIME PRN (Reason: Sleep) 30 Days Qty: 30 RF: 1 hydroxyzine pamoate 25 mg Capsule 50 mg PO Q6H PRN (Reason: Anxiety) 30 Days Qty: 120 RF: 1 bupropion HCl 150 mg Tablet Extended Release 24 Hr 150 mg PO DAILY 30 Days Qty: 30 RF: 1 No Action No Known Home Medications RF: 0 Discharge Orders: Discharge Order (Routine); Ordered 04/04/21 Ordered By: Aristeo Saldaña Discharge Diet: Regular Discharge Activity: Resume usual activity Patient Instructions: Opioid Safety Discharge Attestations NPU Time Spent in Discharge Care*: less than 30 min Specific Discharge Activities: Specific discharge activities: educating patient, discussing with correctional case records supervisor/social workers/dc planners, documenting/other paperwork and evaluating patient/reviewing data Coding Level of Care Code Acute Chg FW DC note Diagnoses Suicidal ideations R45.851 Cannabis abuse F12.10 Autism F84.0 Intellectual disability F79 Alcohol use disorder Anxiety F41.9 Depression F32.9 Hypertension I10
[2021-04-04 08:44] VITALS: BP 114/74; PULSE 97; RESP 20; TEMP 36.6; O2SAT 97
== END 2021-04-04 08:47 | disposition home or self-care (01) | DRG 885 ==
LOC: ER 18:19 → NP 20:19
PROVIDERS: Admitting Provider Psychiatry & Neurology Psychiatry; Emergency Provider Emergency Medicine; Visit Provider Psychiatry & Neurology Psychiatry
DX: F33.2 Major depressive disorder, recurrent severe without psychotic features (principal); R45.851 Suicidal ideations; Z91.19 Patient's noncompliance with other medical treatment and regimen; F41.9 Anxiety disorder, unspecified; F60.3 Borderline personality disorder; I10 Essential (primary) hypertension; F12.10 Cannabis abuse, uncomplicated; F84.0 Autistic disorder; F79 Unspecified intellectual disabilities; F10.10 Alcohol abuse, uncomplicated
CPT/HCPCS: 80048; 80306; 80307; 85025; 97165; 99285; G0378

== ENCOUNTER 2022-01-17 15:14 | Inpatient (IN) | payer SELFPAY ==
[2022-01-17 15:22] VITALS: BP 135/87; PULSE 73; RESP 16; TEMP 36.8; O2SAT 99
--- NOTE | 2022-01-17 15:26 | ED_ITS ---
HPI - General Adult General: Stated complaint: SI Time Seen by Provider: 01/17/22 15:15 History of Present Illness: HPI: [36]yo patient w/ hx of depression BIBA for SI with plan. Patient tells me that ever since his discharge from hospital, he has thoughts of hurting himself. Patient plans to starve himself to . On arrival, the patient is AAOx3 and cooperative with my evaluation. No focal complaints of chest pain, shortness of breath, palpitations, N/V, focal GI/ complaints. Currently denies HI. No complaints of hallucinations. Onset: acute on chronic Duration: ongoing Location: home Severity: severe Associated symptoms: Deny chest pain, dyspnea, nausea, rash, palpitations or vomiting Review of Systems Const: Denies: fever(s) or chills Eyes: Denies: change in vision ENMT: Denies: mouth pain Card: Denies: chest pain or palpitations Resp: Denies: dyspnea or non-productive cough GI: Denies: abdominal pain, nausea, vomiting or diarrhea : Denies: dysuria Musc: Denies: extremity pain Skin/Breast: Denies: rash or new lesions Neuro: Denies: weakness in extremities Psych: Reports: depression and suicidal ideation Federico/Lymph: Denies: easy bruising PFSH ED PFSH: Medical History Depression with suicidal ideation Hypertension Social History Smoking and tobacco status: never smoked Alcohol intake: never Substance/Drug Use: never Physical Exam Const: COMMON NORMALS: alert HENMT: COMMON NORMALS: atraumatic HEAD & SCALP: atraumatic MOUTH: moist mucous membranes not abnormal Eye: COMMON NORMALS: EOMs intact bilaterally and conjunctivae normal CONJUNCTIVA: Yes conjunctivae normal Neck/C-Spine: COMMON NORMALS: full ROM and supple Resp: COMMON NORMALS: normal respiratory effort and clear to auscultation bilaterally AUSCULTATION: clear to auscultation bilaterally Cardio: COMMON NORMALS: regular rate RATE: regular rate GI: COMMON NORMALS: Soft to palpation and non-tender PALPATION: Yes Soft to palpation Extremity: COMMON NORMALS: full ROM Neuro: SENSORIUM/ORIENTATION: Yes alert MOTOR EXAM: No Abnormal motor strength present and Other motor observations present (no focal motor deficits) Psych: COMMON NORMALS: speech normal SPEECH: Yes normal speech MOOD & AFFECT: Yes depressed mood MDM - General Adult Medical Decision Making 36yo patient w/ hx of depression presenting for SI with depression. HDS, exam within normal limit Thoughts are linear and organized, and the patient has no AH/VH, or HI. Clinically the patient displays no overt toxidrome; they are well appearing, with low suspicion for toxic ingestion given history and exam. Symptoms unlikely 2/2 anemia, hypothyroidism, infection, or ICH. Workup: CBC, CMP, Lipase, salicylate/tylenol, UDS Lab findings: wnl [4:30pm] On reassessment, labs and workup wnl. Patient is hemodynamically stable with no acute medical complaints. Case discussed with psychiatric provider Dr. Lopes at [facility] psych inpatient with recommendation for admission Disposition: Psych Discharge Plan Discharge Patient Disposition: Admitted As Inpatient Clinical Impression: Depression with suicidal ideation Condition: Stable Coding Level of Care Code ED [employer] Worker for Familia Rivera
[2022-01-17 15:45] LABS: Basophils # 0.1 10^3/uL (0.0-0.1); Basophils % 0.7 %; Eosinophils # 0.2 10^3/uL (0.0-0.8); Eosinophils % 1.6 %; Hematocrit 44.3 % (42.0-52.0); Hemoglobin 15.8 g/dL (11.7-16.6); Lymphocytes # 2.8 10^3/uL (0.8-4.8); Lymphocytes % 27.4 %; Mean Corpuscular HGB Conc 35.7 g/dL (30.0-36.0); Mean Corpuscular Hemoglobin 29.5 pg (28.0-34.0); Mean Corpuscular Volume 82.8 fl (80-94); Mean Platelet Volume 9.6 fL (7.4-10.4); Monocytes # 0.7 10^3/uL (0.2-0.9); Monocytes % 6.3 %; Neutrophils # 6.53 10^3/uL (1.8-7.7); Neutrophils % 63.3 %; Nucleated Red Blood Cells % 0 %; Platelet Count 396 10^3/cmm (130-400); Red Blood Count 5.35 10^6/uL (4.1-5.3); Red Cell Distribution Width 12.2 % (12.1-15.1); White Blood Count 10.3 10^3/uL (4.0-10.0)
--- NOTE | 2022-01-17 15:46 | PC.PHAR ---
THE TRIAGE ASSESSMENT NOTE STATES THE PT STATED HE HASNT TAKEN HIS MEDICATIONS FOR 5 MONTHS-[facility] STATES THEY HAVENT FILLED MEDICATION FOR THE PT SINCE 05/06/21-RX WRITTEN ON 04/04/21 FOR BUPROPION ER 150MG DAILY,TRAZODONE 50MG HS AND HYDROXYZINE PAMOATE 25MG 50MG Q6H PRN
[2022-01-17 16:07] LABS: Alanine Aminotransferase 19 U/L (0-41); Albumin Level 4.6 g/dL (3.5-5.2); Alkaline Phosphatase 98 IU/L (40-130); Anion Gap 15.6 (5-19); Aspartate Amino Transferase 15 U/L (0-40); Blood Urea Nitrogen 13 mg/dL (6-20); Carbon Dioxide 23 mmol/L (22-29); Chloride 109 mmol/L (98-107); Globulin 2.9 g/dL (1.3-4.6); Glomerular Filtration Rate 128.3 mL/min (90-130); Glucose 97 mg/dL (65-115); Lipase 19 U/L (13-60); Osmolality Calculated 298 mOsm/kg (285-295); Potassium 3.6 mmol/L (3.5-5.1); Sodium 144 mmol/L (136-145); Total Bilirubin 0.4 mg/dL (0.15-1.2); Total Protein 7.5 g/dL (6.6-8.7)
[2022-01-17 16:09] LABS: Acetaminophen < 5.0 ug/mL (10-30); Alcohol Level < 10 mg/dL (0-10); Salicylate < 0.3 mg/dL (3-10)
[2022-01-17 16:28] VITALS: BP 132/86; PULSE 75; RESP 18; TEMP 36.8; O2SAT 97
--- NOTE | 2022-01-17 17:09 | PC.ADMIT ---
[address] Admission Note: The patient,Servando Merino,36 y/o, was given written information regarding hospital policies, unit procedures and contact persons. Patient's smoking status: never smoked. Vital Signs - 8 hr 01/17/22 15:22 01/17/22 16:28 Temperature 98.2 F 98.2 F Pulse Rate 73 75 Respiratory Rate 16 18 Blood Pressure 135/87 132/86 Pulse Oximetry 99 97 ADMITTED FROM ER VIA WHEELCHAIR AND SECURITY AT 1622. PT IS ALERT AND ORIENTATED AND CAN MAKE NEEDS KNOWN. DENIES PAIN. NO KNOWN DRUG ALLERGIES. PT STATES HE CAME IN DUE TO WANTING TO KILL HIMSELF BY STAVATION AND NO DRINKING. PT STATES THE LAST TIME HE ATE WAS LAST NIGHT AT 800PM AND HAS NOT DRANK ANYTHING SINCE THIS AM. PT STATES HE HAS BEEN MORE DEPRESSED THE PAST 2 WEEKS AND WANTS TO END IT ALL. DINNER TRAY WAS OFFERED BUT PT DECLINES. PT ASKED SEVERAL TIMES HOW LONG IT WOULD TAKE HIM TO KILL HIMSELF BY NOT EATING OR DRINKING. PT WAS REDIRECTED VERBALLY. PT WAS CONTRACTED FOR SAFETY WHILE ON THE UNIT. PT REPORTS SMOKING WEED DAILY TO HELP WITH HIS ANXIETY. PT HAS BEEN TO THE UNIT 5 TIMES FOR DEPRESSION. PT STATES THE LAST TIME HE WAS NOT ABLE TO GET BACK TO THE DR. TO GET HIS PSYCH MEDS REFILLED AND HAS BEEN OFF HIS MEDS FOR 5 MONTHS. PT ENDORSES SI WITH PLAN TO STARVE, DENIES HI AND AVH AT THIS TIME. ORIENTATED TO UNIT. 15 MINUTE CHECKS INITATED. ALL QUESTIONS ANSWERED AND SUPPORT VOICED.
[2022-01-17 18:00] LABS: Amphetamines Screen Urine Negative (Negative); Barbiturates Screen Urine Negative (Negative); Benzodiazepines Screen Urine Negative (Negative); Cocaine Screen Urine Negative (Negative); Opiate Screen Urine Negative (Negative); PCP Screen Urine Negative (Negative); THC Screen Urine Positive (Negative)
--- NOTE | 2022-01-17 18:08 | PC.NURSE ---
POLICE OFFICERS INFORMATION TECHNOLOGY ACCOUNT MANAGER BROUGHT IN AFFIDAVITS TO PLACE PT ON 96 HOUR HOLD. PT DID SIGN IN VOLUNTARY BUT WILL NOW BE PLACED ON A 96 HOUR HOLD. PT 96 PAPER WORK WAS GIVEN TO PT WITH PT RIGHT BOOK.
[2022-01-17 19:58] VITALS: BP 100/60; PULSE 85; RESP 16; TEMP 36.6; O2SAT 97
[2022-01-18 06:00] VITALS: BP 114/70; PULSE 76; RESP 15; TEMP 36.6; O2SAT 98
[2022-01-18 14:00] VITALS: BP 109/66; PULSE 68; RESP 20; TEMP 36.6; O2SAT 97
[2022-01-18 19:17] VITALS: BP 127/77; PULSE 80; RESP 20; TEMP 36.7; O2SAT 97
--- NOTE | 2022-01-18 19:54 | W.PM.NPUH&PS ---
Providers/Chief Complaint Admitting Physician: Cheo Lopes MD Chief Complaint: SI HPI NPU History of Present Illness Servando Merino is a 36 year old male who presents to the neuropsychiatric unit on an involuntary hold secondary to suicidal ideation. He reports he has been psychiatrically hospitalized 4 times previously, the last time of which was in 2020 for suicidal ideation as well. He reports he was diagnosed with depression and anxiety. He reports his first psychiatric hospitalization was when he was 26 years old. He reports he had received outpatient therapy services but has not seen a psychiatrist in 5 months. He reports he has been on Wellbutrin in the past and Hydroxyzine which made him sleepy. He reports he has had a problem with drinking in the past but only once every few weeks currently and endorses marijuana daily to help with his anxiety. He reports work has been going well though he has periods where he gets overwhelmed and starts to freak out. He reports he stopped eating and drinking as he had read on the internet about it as he wanted to end things due to finances and other issues in his problem. He reports things have never been this bad and endorses feeling hopeless. He reports things are good between him and his fianc?. He reports he currently has a pending charge for marijuana and is looking at facing longterm time of 2 months and wanted to stop eating so he would before he had to go to longterm. He endorses not wanting to eat and endorses this is second day of not drinking anything. He denies auditory hallucinations. He endorses problems with worrying and staying asleep. He denies any medications for sleep or other antidepressants in the past. He reports muscle tension with his anxiety and endorses irritability when he is worrying about things. He reports all of his hospitalizations have been involuntary Psychiatric History: As above. Substance Abuse History: As above Family History: He reports alcoholism on his father?s side of the family and denies any mental health issues on either side of the family. Developmental History: He did not report any developmental issues but reports he received special education classes and endorses a learning disability. Psychosocial History: He reports he was born in [place], [place] and was raised by his mother as his father was in and out of [place]. He has a sister who is a product of the same union and his mother has one additional daughter. He graduated high school and did no additional training. He has never been , is currently engaged, and does not have any children. He is currently employed. He denies emotional, physical or sexual abuse in his childhood. He currently lives with his fianc?. Legal History: He reports he has had 2 DWIs in the past. He reports he has a possession charge which is currently pending which was a violation of his previous charge in regards to marijuana. Medical History: Denied. 1. Initiate Zoloft 25 mg with increase to 50 mg po q daily and Seroquel 50 mg po q night. 2. Encourage individual, group and milieu therapy 3. Continue q-15 minute check for safety 4. Recommend sober living treatment at the highest level of care to which the patient is willing to commit. Meds NPU Home Medications Medication Instructions Recorded Confirmed Last Taken Type Unable to Assess 01/17/22 01/17/22 Unknown History Allergies Allergy/AdvReac Type Severity Reaction Status Date / Time No Known Allergies Allergy Verified 03/31/21 17:28 PFS NPU PFSH: Medical History Depression with suicidal ideation Hypertension Social History Smoking and tobacco status: never smoked Alcohol intake: never Substance/Drug Use: never Mental Status Exam MSE Comments: This is a well nourished, well developed white male in hospital scrubs with adequate grooming and eye contact. No abnormal movements except for mild psychomotor retardation. Cooperative with exam in no acute distress. Speech was normal rate and volume but monotone. Mood described as depressed, affect is congruent. Thought process, organized. Thought content: patient demonstrates suicidal ideation with a plan to starve himself but no homicidal ideation, no delusions were noted, and he denies auditory or visual hallucinations. Attention and concentration are intact and memory appeared reliable though none were formally tested. He is alert and oriented three times. Insight and judgment are impaired. Impulse control is impaired. Vitals/I&O/Wt Last Vital Signs Temp 98.1 F 01/18/22 19:17 Pulse 80 01/18/22 19:17 Resp 20 H 01/18/22 19:17 BP 127/77 01/18/22 19:17 Pulse Ox 97 01/18/22 19:17 Weight last 48 hrs Weight 77.111 kg Data NPU : 01/17/22 15:30 01/17/22 15:30 A&P Assessment and plan (1) Depression with suicidal ideation: Status: Acute (2) Autism: Status: Acute (3) Anxiety: Status: Acute (4) Depression: Status: Acute (5) Cannabis abuse: Status: Acute (6) Intellectual disability: Status: Acute (7) Alcohol use disorder: Status: Acute (8) Hypertension: Status: Acute Plan This is a 36 year old white male with a history of alcohol abuse and symptoms consistent with generalized anxiety disorder and major depressive disorder, recurrent, who was admitted involuntarily after endorsing suicidal ideation with a plan to not eat or drink. We discussed the risks, benefits and alternatives of Zoloft and he understood and agreed to proceed as is documented in this note. Involuntary Hold Information 96 Hour Hold: 96 Hour Involuntary Admission: No Attestations NPU Medical Necessity Statement*: Inpatient hospitalization is medically necessary and the clinically appropriate intervention, at this time. We will monitor medications and make changes as indicated. Likely length of stay is 1-2 days. Coding Level of Care Code New Pt Acute Assistant Fitness Manager for Chg Fwd Patient Type New History Problem Focused Exam Problem Focused Medical Decision Making Straight Forward Diagnoses Depression with suicidal ideation F32.A; R45.851 Autism F84.0 Anxiety F41.9 Depression F32.9 Cannabis abuse F12.10 Intellectual disability F79 Alcohol use disorder Hypertension I10
--- NOTE | 2022-01-18 20:36 | PC.NURSE ---
PT IN BED AROUSES TO VOICE STATES HE STARTED EATING TODAY. THIS RN ENCOURAGED TO COME UP LATER AND GET A DRINK AND SNACK PT STATES HE WILL. PT STATES THAT HE IS GOING TO CONTINUE TO EAT. DENIES PAIN. MARINO SI/HI AND AVH AT THIS TIME. PT APPEARS FLAT, DEPRESSED AND SAD THIS EVENING. ALL QUESTIONS ANSWERED AND SUPPORT VOICED.
[2022-01-18] MEDS: trazodone 50 mg Tablet PO (22:13)
--- NOTE | 2022-01-18 22:35 | PC.NURSE ---
PRN MEDICATION PT TO NURSES STATION REQUESTING ZOLOFT. EDUCATED PT THAT ZOLOFT WILL START TOMORROW AT 900 AM. PT VERBALIZED UNDERSTANDING. STATES HE IS NEEDING SOMETHING TO HELP HIM SLEEP. TRAZADONE 50MG GIVEN ORDERED.
[2022-01-19 05:45] VITALS: BP 127/77; PULSE 80; RESP 20; TEMP 36.7; O2SAT 97
[2022-01-19 05:57] VITALS: BP 101/68; PULSE 79; RESP 16; TEMP 36.6; O2SAT 96
[2022-01-19] MEDS: sertraline 50 mg Tablet 25 MG PO (09:15)
[2022-01-19 14:00] VITALS: BP 99/63; PULSE 71; RESP 17; TEMP 36.6; O2SAT 95
--- NOTE | 2022-01-19 18:03 | W.PM.NPUPNS ---
Subjective NPU Subjective: Patient presents today fairly worried about his situation with the court system. He reports that he feels like the Wellbutrin worked last time but that he did not go for follow-up and it seemed to be less effective later. We talked about there being a need for an increase in the medication often and that that is one of the reasons for follow-up. He is very worried and anxious about his Sunday meeting with his p.o. officer and his belief that he will likely have to go to [facility] for 2 months. He reports that he is not in a better state of mind that he will never make it in [facility] for those 2 months. We discussed the risk benefits and alternatives of restarting Wellbutrin XL 150 mg p.o. every morning with a plan to increase the dose prior to discharge and increase the Zoloft to 50 mg p.o. every morning and he understood and agreed to proceed as is documented in this note. Mental Status Exam MSE Comments: This is a well nourished, well developed white male in hospital scrubs with adequate grooming and eye contact. No abnormal movements except for mild psychomotor retardation. Cooperative with exam in no acute distress. Speech was normal rate and volume but monotone. Mood described as depressed, affect is congruent. Thought process, organized. Thought content: patient demonstrates suicidal ideation with a plan to starve himself but no homicidal ideation, no delusions were noted, and he denies auditory or visual hallucinations. Attention and concentration are intact and memory appeared reliable though none were formally tested. He is alert and oriented three times. Insight and judgment are impaired. Impulse control is impaired. Vitals/I&O/Wt Last Vital Signs Temp 97.4 F L 01/19/22 20:06 Pulse 66 01/19/22 20:06 Resp 18 01/19/22 20:06 BP 100/62 01/19/22 20:06 Pulse Ox 96 01/19/22 20:06 Data NPU : 01/17/22 15:30 01/17/22 15:30 A&P Assessment and plan (1) Depression with suicidal ideation: Status: Acute (2) Cannabis abuse: Status: Acute (3) Autism: Status: Acute (4) Intellectual disability: Status: Acute (5) Alcohol use disorder: Status: Acute (6) Anxiety: Status: Acute Plan This is a 36-year-old, white male, with a long history of depression and anxiety, as well as a past history of cannabis use and borderline intellectual functioning, who presents off of medication but open to restarting medication. RECOMMENDATION AND PLAN: 1. Continue current medication. Started Zoloft 25 mg p.o. daily will increase to 50 mg. Restart Wellbutrin XL 150 mg p.o. every morning. 2. Encourage individual, group, and milieu therapy. 3. Continue q-15 minute checks for safety. 4. Encourage sober living treatment after discharge, at the highest level of care, to which he is willing to commit. Involuntary Hold Information 96 Hour Hold: 96 Hour Involuntary Admission: No Attestations NPU Medical Necessity Statement*: Inpatient hospitalization is medically necessary and the clinically appropriate intervention, at this time. We will monitor medications and make changes as indicated. Likely length of stay is 1-3 days. Coding Level of Care Code Acute Pressroom Foreman for Familia Rivera Diagnoses Depression with suicidal ideation F32.A; R45.851 Cannabis abuse F12.10 Autism F84.0 Intellectual disability F79 Alcohol use disorder Anxiety F41.9
[2022-01-19 20:06] VITALS: BP 100/62; PULSE 66; RESP 18; TEMP 36.3; O2SAT 96
[2022-01-19] MEDS: trazodone 50 mg Tablet PO ×2 (20:13→21:01)
[2022-01-20 06:00] VITALS: BP 107/71; PULSE 84; RESP 16; TEMP 36.7; O2SAT 96
[2022-01-20] MEDS: sertraline 50 mg Tablet PO (08:46)
[2022-01-20] MEDS: buPROPion XL (24 HR) 150 mg Tablet PO (08:46)
[2022-01-20 14:00] VITALS: BP 116/75; PULSE 75; RESP 16; TEMP 36.7; O2SAT 96
--- NOTE | 2022-01-20 17:06 | W.PM.NPUPNS ---
Subjective NPU Subjective: Patient presents today reporting that he is feeling better. He reports that he has a better handle on his situation and is excepting that he does not want to think about the possible bad outcome but he knows there is no option but to get to his parking enforcement officer's office on Sunday and hope for the best. He is hydrating himself and reports that the Wellbutrin is helpful. We agreed we would discharge him with a plan for increase in the medication on Sunday. He also agreed to discharge in the morning. Mental Status Exam MSE Comments: This is a well nourished, well developed white male in hospital scrubs with adequate grooming and eye contact. No abnormal movements except for resolving mild psychomotor retardation. Cooperative with exam in no acute distress. Speech was normal rate and volume but monotone. Mood described as a little better, affect is congruent. Thought process, organized. Thought content: Patient denies suicidal or homicidal ideation, no delusions were reported or noted, and he denies auditory or visual hallucinations. Attention and concentration are intact and memory appeared reliable though none were formally tested. He is alert and oriented three times. Insight and judgment are improving. Impulse control is limited. Vitals/I&O/Wt Last Vital Signs Temp 98.1 F 01/20/22 14:00 Pulse 75 01/20/22 14:00 Resp 16 01/20/22 14:00 BP 116/75 01/20/22 14:00 Pulse Ox 96 01/20/22 14:00 Data NPU : 01/17/22 15:30 01/17/22 15:30 A&P Assessment and plan (1) Depression with suicidal ideation: Status: Acute (2) Cannabis abuse: Status: Acute (3) Autism: Status: Acute (4) Intellectual disability: Status: Acute (5) Alcohol use disorder: Status: Acute (6) Anxiety: Status: Acute Plan This is a 36-year-old, white male, with a long history of depression and anxiety, as well as a past history of cannabis use and borderline intellectual functioning, who presents off of medication but open to restarting medication. RECOMMENDATION AND PLAN: 1. Continue current medication.? Started Zoloft 25 mg p.o. daily and increased to 50 mg 01/20/2022. Restarted Wellbutrin XL 150 mg p.o. every morning. With a plan to increase it to 300 mg p.o. every morning starting 01/22/2022 2. Encourage individual, group, and milieu therapy. 3. Continue q-15 minute checks for safety. 4. Encourage sober living treatment after discharge, at the highest level of care, to which he is willing to commit. Involuntary Hold Information 96 Hour Hold: 96 Hour Involuntary Admission: No Attestations NPU Medical Necessity Statement*: Inpatient hospitalization is medically necessary and the clinically appropriate intervention, at this time. We will monitor medications and make changes as indicated. Plan for discharge in the morning. Coding Level of Care Code Acute Digital Circuit Designer for g Fwd Diagnoses Depression with suicidal ideation F32.A; R45.851 Cannabis abuse F12.10 Autism F84.0 Intellectual disability F79 Alcohol use disorder Anxiety F41.9
[2022-01-20 20:03] VITALS: BP 131/86; PULSE 71; RESP 16; O2SAT 97
[2022-01-20] MEDS: trazodone 50 mg Tablet PO (20:14)
--- NOTE | 2022-01-20 22:19 | PC.NURSE ---
PT MOTHER CALLED NURSES STATION ASKING WHEN PT WAS GETTING DISCHARGED. THIS NURSE VERIFIED PT MOTHER IS ON CONSENT. PT MOTHER WAS CONFUSED PT JUST CALLED HER AND TOLD HER THAT HE WAS GETTING RELEASED TOMORROW. PT MOTHER STATES SHE SPOKE WITH THE SOCIAL WORKERS THIS MORNING AND WAS CONFUSED BECAUSE SHE WAS TOLD HE WAS GOING TO BE ON THE UNIT THE REST OF THE WEEKEND. THIS NURSE TOLD PT MOTHER THAT DURING SHIFT REPORT IT WAS NOT MENTIONED PT WAS GOING TO BE DISCHARGED AND IT WOULD MOST LIKELY BE AT THE BEGINNING OF THE WEEK. THIS NURSE TOOK PT MOTHERS NUMBER SO STAFF COULD REACH OUT TO HER TOMORROW WITH AN UPDATE AFTER THE PROVIDER COMPLETED HIS DAILY VISIT. PT MOTHER VERBALIZED UNDERSTANDING
[2022-01-21 06:00] VITALS: BP 102/66; PULSE 65; RESP 17; O2SAT 97
--- NOTE | 2022-01-21 09:05 | P.NPUDS_ITS ---
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 Room/Bed: 155-1 Encounter Date: 01/18/[address]: Cheo Lopes MD Report Number: [id number] Providers/Chief Complaint Admitting Physicia n:?? Cheo Lopes MD ? Chief Complaint:?? SI HPI NPU History of Present Illness Servando Merino is a 36 year old male who presents to the neuropsychiatric unit on an involuntary hold secondary to suicidal ideation. He reports he has been psychiatrically hospitalized 4 times previously, the last time of which was in 2020 for suicidal ideation as well. He reports he was diagnosed with d epression and anxiety. He reports his first psychiatric hospitalization was when he was 26 years old. He reports he had received outpatient therapy services but has not seen a psychiatrist in 5 months. He reports he has been on Wellbutrin in the past and Hydroxyzine which made him sleepy. He reports he has had a problem with drinking in the past but only once every few weeks currently and endorses marijuana daily to help with his anxiety. He reports work has been going well though he has periods where he gets overwhelmed and starts to freak out. He reports he stopped eating and drinking as he had read on the internet about it as he wanted to end things due to finances and other issues in his problem. He reports things have never been this bad and endorses feeling hopeless. He reports things are good between him and his fianc?. He reports he currently has a pending charge for marijuana and is looking at facing intermediate time of 2 months and wanted to stop eating so he would before he had to go to intermediate. He endorses not wanting to eat and endorses this is second day of not drinking anything. He denies auditory hallucinations. He endorses problems with worrying and staying asleep. He denies any medications for sleep or other antidepressants in the past. He reports muscle tension with his anxiety and endorses irritability when he is worrying about things. He reports all of his hospitalizations have been involuntary Psychiatric History: As above. Substance Abuse History: As above Family History: He reports alcoholism on his father?s side of the family and denies any mental health issues on either side of the family. Developmental History: He did not report any developmental issues but reports he received special education classes and endorses a learning disability. Psychosocial History: He reports he was born in [place], [place] and was raised by his mother as his father was in and out of [place]. He has a sister who is a product of the same union and his mother has one additional daughter. He graduated high school and did no additional training. He has never been , is currently engaged, and does not have any children. He is currently employed. He denies emotional, physical or sexual abuse in his childhood. He currently lives with his fianc?. Legal History: He reports he has had 2 DWIs in the past. He reports he has a possession charge which is currently pending which was a violation of his previous charge in regards to marijuana. Medical History: Denied. Hospital Course Hospital Course He slowly acclimated to the individual, group and milieu therapies provided. He had been on Wellbutrin before but endorsed that he did not follow-up and so initially it was helpful but then it diminished. We started the Wellbutrin XL 150 mg every morning and titrated to 300 mg and maintained the Zoloft. He had some legal peril that he was struggling to deal with having concerns that he may possibly be decided on Sunday that he has to go back to [facility] intermediate. He worked with this bond underwriter and the treatment team for a reasonable approach to the situation. He had a different mindset about the situation and did have marked improvement during the stay and was able to contract for safety outside the hospital prior to discharge no matter the outcome on Sunday. During the hospitalization, patient had routine laboratory studies which were within normal limits except for few outliers. Additionally there was a general medical evaluation which was also within normal limits and revealed no new acute processes. Discharge Summary: At the time of discharge, lethality was denied and psychosis was resolving. Mood and anxiety were well managed. Patient endorsed a plan to avoid all drugs of abuse and follow-up with the aftercare recommendations of the treatment team. Patient was evaluated and deemed to be absent credible lethality, and had achieved the maximum benefit from an inpatient hospitalization, so was discharged. Involuntary Hold Information 96 Hour Hold: 96 Hour Involuntary Admission: No Mental Status Exam MSE Comments: This is a well nourished, well developed white male in hospital scrubs with adequate grooming and eye contact. No abnormal movements except for resolving mild psychomotor retardation. Cooperative with exam in no acute distress. Speech was normal rate and volume but monotone. Mood described as better/optimistic affect is congruent. Thought process, organized. Thought content: Patient denies suicidal or homicidal ideation, no delusions were reported or noted, and he denies auditory or visual hallucinations. Attention and concentration are intact and memory appeared reliable though none were formally tested. He is alert and oriented three times. Insight and judgment are improving. Impulse control is limited. Discharge Data Studies Completed and Pending: Laboratory Results WBC 10.3 10^3/uL (4.0 -10.0) H 01/17/22 15:30 RBC 5.35 10^6/uL (4.1 -5.3) H 01/17/22 15:30 Hgb 15.8 g/dL (11.7-1 6.6) 01/17/22 15:30 Hct 44.3 % (42.0-52.0 ) 01/17/22 15:30 MCV 82.8 fl (80-94) 01/17/22 15:30 MCH 29.5 pg (28.0-34. 0) 01/17/22 15:30 MCHC 35.7 g/dL (30.0-3 6.0) 01/17/22 15:30 RDW 12.2 % (12.1-15.1 ) 01/17/22 15:30 Plt Count 396 10^3/cmm (130 -400) 01/17/22 15:30 MPV 9.6 fL (7.4-10.4) 01/17/22 15:30 Neut % (Auto) 63.3 % 01/17/22 15:30 Lymph % (Auto) 27.4 % 01/17/22 15:30 Greer % (Auto) 6.3 % 01/17/22 15:30 Eos % (Auto) 1.6 % 01/17/22 15:30 Baso % (Auto) 0.7 % 01/17/22 15:30 Neut # (Auto) 6.53 10^3/uL (1.8 -7.7) 01/17/22 15:30 Lymph # (Auto) 2.8 10^3/uL (0.8- 4.8) 01/17/22 15:30 Greer # (Auto) 0.7 10^3/uL (0.2- 0.9) 01/17/22 15:30 Eos # (Auto) 0.2 10^3/uL (0.0- 0.8) 01/17/22 15:30 Baso # (Auto) 0.1 10^3/uL (0.0- 0.1) 01/17/22 15:30 Nucleated RBC % (a uto) 0 % 01/17/22 15: Nucleated RBCs # 0.0 /100WBC 01/17/22 15:30 Sodium 144 mmol/L (136-1 45) 01/17/22 15:30 Potassium 3.6 mmol/L (3.5-5 .1) 01/17/22 15:30 Chloride 109 mmol/L (98-10 7) H 01/17/22 15:30 Carbon Dioxide 23 mmol/L (22-29) 01/17/22 15:30 Anion Gap 15.6 (5-19) 01/17/22 15:30 BUN 13 mg/dL (6-20) 01/17/22 15:30 Creatinine 0.7 mg/dL (0.7-1. 2) 01/17/22 15:30 GFR Calculation 128.3 mL/min (90- 130) 01/17/22 15:30 Glucose 97 mg/dL (65-115) 01/17/22 15:30 Calculated Osmolal ity 298 mOsm/kg (285- 295) H 01/17/22 15:30 Calcium 9.0 mg/dL (8.5-10 .5) 01/17/22 15:30 Total Bilirubin 0.4 mg/dL (0.15-1 .2) 01/17/22 15:30 AST 15 U/L (0-40) 01/17/22 15:30 ALT 19 U/L (0-41) 01/17/22 15:30 Alkaline Phosphata se 98 IU/L (40-130) 01/17/22 15:30 Total Protein 7.5 g/dL (6.6-8.7 ) 01/17/22 15:30 Albumin 4.6 g/dL (3.5-5.2 ) 01/17/22 15:30 Globulin 2.9 g/dL (1.3-4.6 ) 01/17/22 15:30 Lipase 19 U/L (13-60) 01/17/22 15:30 Salicylates < 0.3 mg/dL (3-10 ) L 01/17/22 15:30 Urine Opiates Scre en Negative ng/mL (N egative) 01/17/22 15:30 Acetaminophen < 5.0 ug/mL (10-3 0) L 01/17/22 15:30 Ur Barbiturates Sc reen Negative ng/mL (N egative) 01/17/22 15:30 Ur Phencyclidine S crn Negative ng/mL (N egative) 01/17/22 15:30 Ur Amphetamines Sc reen Negative ng/mL (N egative) 01/17/22 15:30 U Benzodiazepines Scrn Negative ng/mL (N egative) 01/17/22 15:30 Urine Cocaine Scre en Negative ng/mL (N egative) 01/17/22 15:30 U Marijuana (THC) Screen Positive ng/mL (N egative) H 01/17/22 15:30 Ethyl Alcohol < 10 mg/dL (0-10) 01/17/22 15:30 Vitals: Last Vital Signs Temp 98.1 F 01/20/22 14:00 Pulse 71 01/20/22 20:03 Resp 16 01/20/22 20:03 BP 131/86 01/20/22 20:03 Pulse Ox 97 01/20/22 20:03 Discharge Plan Discharge Patient Disposition: Home Condition: Stable Prescriptions: New Wellbutrin XL 300 mg tablet extended release 24 hr 300 mg PO QAM 30 Days Qty: 30 1RF trazodone 50 mg Tablet 50 mg PO BEDTIME PRN (Reason: Insomnia) 30 Days Qty: 30 1RF sertraline 50 mg Tablet 50 mg PO DAILY 30 Days Qty: 30 1RF Discharge Orders: Discharge Order (Routine); Ordered 01/21/22 Ordered By: Aristeo Saldaña Referrals: [facility] [Outside] - 01/24/22 8:45 am (Initial apppointment scheduled with Meng Cisneros on 01/24/22. Check in at 08:45 am. ) Discharge Diet: Regular Discharge Activity: Resume usual activity Patient Instructions: Depression, Bupropion (By mouth), Trazodone (By mouth), Sertraline (By mouth), Autism Spectrum Disorder (DC), Cannabis Use Disorder (DC), Suicide Prevention (DC), Opioid Safety Discharge Attestations NPU Time Spent in Discharge Care*: less than 30 min Specific Discharge Activities: Specific discharge activities: educating patient, discussing with heel caser/social workers/dc planners, documenting/other paperwork and evaluating patient/reviewing data Coding Level of Care Code Acute Chg FW DC note Diagnoses Depression with suicidal ideation F32.A; R45.851 Cannabis abuse F12.10 Autism F84.0 Intellectual disability F79 Alcohol use disorder Anxiety F41.9
[2022-01-21] MEDS: buPROPion XL (24 HR) 150 mg Tablet PO (09:26)
[2022-01-21] MEDS: sertraline 50 mg Tablet PO (09:26)
[2022-01-21 10:40] VITALS: BP 102/66; PULSE 65; RESP 17; O2SAT 97
--- NOTE | 2022-01-21 11:20 | PC.NURSE ---
Patient stated that he was doing better today. He's come to terms with the fact that he needs to own his mistakes and has accepted that he may need to do some time in intermediate. He recognized that he can do anything for 60 days and that he will then be able to get back to living his life.
[2022-01-21 14:20] VITALS: BP 116/75; PULSE 82; RESP 16; TEMP 36.6; O2SAT 97
== END 2022-01-21 17:00 | disposition home or self-care (01) | DRG 881 ==
LOC: ER 15:23 → NP 01-18 02:15
PROVIDERS: Admitting Provider Psychiatry & Neurology Psychiatry; Emergency Provider Emergency Medicine; Visit Provider Psychiatry & Neurology Psychiatry
DX: F32.9 Major depressive disorder, single episode, unspecified (principal); R45.851 Suicidal ideations; Z81.1 Family history of alcohol abuse and dependence; F10.10 Alcohol abuse, uncomplicated; F12.10 Cannabis abuse, uncomplicated; F41.1 Generalized anxiety disorder; I10 Essential (primary) hypertension; F84.0 Autistic disorder; F79 Unspecified intellectual disabilities
CPT/HCPCS: 80053; 80306; 80307; 83690; 85025; 97150; 97165; 99285

== ENCOUNTER → 2022-10-27 12:25 | Outpatient (BNVA) | payer OTHER, SELFPAY | PROVIDERS: Visit Provider Nurse Practitioner | DX: Z79.899 Other long term (current) drug therapy (principal) | CPT/HCPCS: 80061; 83036 ==

== ENCOUNTER → 2023-09-21 11:20 | Outpatient (BNVA) | payer OTHER, SELFPAY | PROVIDERS: Visit Provider Nurse Practitioner | DX: Z79.899 Other long term (current) drug therapy (principal) | CPT/HCPCS: 80061; 83036 ==

== ENCOUNTER → 2024-12-19 11:23 | Outpatient (BNVA) | payer OTHER, SELFPAY ==
[2024-07-01 12:23] VITALS: BP 130/80; BMI 36.9
== END ==
PROVIDERS: Visit Provider Nurse Practitioner
DX: Z79.899 Other long term (current) drug therapy (principal)
CPT/HCPCS: 80061; 83036